=== PATIENT | male | born 1990 | race Caucasian/White ===

== ENCOUNTER → 2016-07-31 | Outpatient (CLI) | payer OTHER ==
[~2016-07-31] MED LIST: CLIN300C PO; INSUH10VL SC; TYLE325T5 PO; XANA0.25 PO; ZOLO20CO PO
--- NOTE | 2016-08-01 06:57 | REP ---
Mandible series: Four views. History: Mandible injury. Pain. Findings: Mandibular views demonstrate a fracture through the angle of the mandible on the left side with some associated swelling. This is nondisplaced. No condylar neck fracture is appreciated on either side. No other fracture is appreciated radiographically. Impression: Nondisplaced fracture of the mandibular angle on the left with associated soft-tissue swelling. No other fracture is visible. Signed by Ponce Garcia MD 08/01/2016 11:39 A
--- NOTE | 2016-08-01 07:06 | REP ---
Cervical spine series: Three views. Limited study. History: Injury in a fall 3 weeks ago, neck pain. Findings: AP, lateral and open mouth odontoid views are presented. Cervical vertebral body heights are preserved and alignment is normal. No fracture or subluxation is seen. Prevertebral soft tissues are not swollen. No malalignment is seen. Impression: Normal limited C-spine views. It should be noted that CT scanning is the imaging modality of choice for evaluation of cervical spine trauma in the adult. It is more sensitive than plain radiography. Signed by Ponce Garcia MD 08/01/2016 11:40 A
== END ==
LOC: M WUC 14:52
PROVIDERS: ATTEND Physician Assistant
DX: S02.652A Fracture of angle of left mandible, initial encounter for closed fracture (principal); Y92.9 Unspecified place or not applicable; Y93.9 Activity, unspecified; Y99.9 Unspecified external cause status; X58.XXXA Exposure to other specified factors, initial encounter

== ENCOUNTER → 2017-06-29 | Outpatient (CLI) | payer MEDICAID | LOC: M OUTALCOH 07:57 | DX: F15.20 Other stimulant dependence, uncomplicated (principal); F12.20 Cannabis dependence, uncomplicated ==

== ENCOUNTER 2017-07-10 09:29 | Outpatient (RCR) | payer MEDICAID | END 2017-07-12 | LOC: M OUTALCOH 09:29 | DX: F15.20 Other stimulant dependence, uncomplicated (principal); F12.20 Cannabis dependence, uncomplicated; Z72.0 Tobacco use ==

== ENCOUNTER 2017-07-19 15:37 | Outpatient (RCR) | payer MEDICAID | END 2017-08-12 | LOC: M OUTALCOH 07-20 10:00 | DX: F15.20 Other stimulant dependence, uncomplicated (principal); F12.20 Cannabis dependence, uncomplicated; Z72.0 Tobacco use | CPT/HCPCS: 90834 ==

== ENCOUNTER 2017-08-14 11:19 | Outpatient (RCR) | payer MEDICAID, OTHER | END 2017-09-11 | LOC: M OUTALCOH 11:19 | DX: F15.20 Other stimulant dependence, uncomplicated (principal); F12.20 Cannabis dependence, uncomplicated; Z72.0 Tobacco use | CPT/HCPCS: 90834 ==

== ENCOUNTER 2017-09-13 10:20 | Outpatient (RCR) | payer MEDICAID | END 2017-10-12 | LOC: M OUTALCOH 10:20 | DX: F15.20 Other stimulant dependence, uncomplicated (principal); F12.20 Cannabis dependence, uncomplicated; Z72.0 Tobacco use ==

== ENCOUNTER 2017-11-01 15:06 | Outpatient (RCR) | payer MEDICAID, OTHER | END 2017-11-11 | LOC: M OUTALCOH 11-07 09:00 | DX: F15.20 Other stimulant dependence, uncomplicated (principal); F12.20 Cannabis dependence, uncomplicated; Z72.0 Tobacco use | CPT/HCPCS: 90834 ==

== ENCOUNTER 2017-11-13 10:44 | Outpatient (RCR) | payer MEDICAID, OTHER | END 2017-12-12 | LOC: M OUTALCOH 10:44 | DX: F15.20 Other stimulant dependence, uncomplicated (principal); F12.20 Cannabis dependence, uncomplicated; F14.20 Cocaine dependence, uncomplicated; Z72.0 Tobacco use ==

== ENCOUNTER → 2018-02-27 | Outpatient (CLI) | payer OTHER ==
[2018-02-27 17:38] LABS: MAGNESIUM LEVEL 1.6 MG/DL (1.8-2.4)
[2018-02-27 17:51] LABS: TOTAL 25(OH) VITAMIN D 45.8 NG/ML (30.0-100.0)
== END ==
LOC: M LAB 16:49
DX: E61.2 Magnesium deficiency (principal); E55.9 Vitamin D deficiency, unspecified
CPT/HCPCS: 83735

== ENCOUNTER → 2018-03-23 | Outpatient (REF) | payer OTHER ==
[2018-03-23 17:20] LABS: MAGNESIUM LEVEL 1.8 MG/DL (1.8-2.4)
== END ==
LOC: M LAB REF 16:36
DX: E61.2 Magnesium deficiency (principal)

== ENCOUNTER → 2018-04-23 | Outpatient (CLI) | payer OTHER | LOC: M RAD 13:59 | DX: R94.6 Abnormal results of thyroid function studies (principal) ==

== ENCOUNTER 2018-05-16 19:47 | Inpatient (IN) | payer OTHER ==
[~2018-05-16] VITALS: Ht 170.2 cm; Wt 64.8 kg
[2018-05-16] MEDS ORDERED: NS 1,000 ML IV ONE (20:00)
[2018-05-16 20:02] LABS: BASO % 0.3 % (0.0-1.0); EOS # 0.3 10^3/uL (0.0-0.50); EOS % 2.3 % (0.0-3.0); HEMATOCRIT 37.2 % (42.0-52.0); HEMOGLOBIN 12.1 g/dl (13.5-17.5); LYMPH # 4.2 10^3/uL (1.5-6.5); MEAN CORPUSCULAR HEMOGLOBIN 29.7 pg (27.0-33.0); MEAN CORPUSCULAR HGB CONC 32.5 g/dl (32.0-36.5); MEAN CORPUSCULAR VOLUME 91.2 fl (80.0-96.0); MONO # 0.7 10^3/uL (0.0-0.8); NEUTROPHILS # 6.5 10^3/uL (1.8-7.7); NEUTROPHILS % 55.1 % (36.0-66.0); PLATELET COUNT, AUTOMATED 255 10^3/uL (150-450); RED BLOOD COUNT 4.08 10^6/uL (4.30-6.10); WHITE BLOOD COUNT 11.7 10^3/uL (4.0-10.0)
[2018-05-16] MEDS ORDERED: INSUHUMDS SC (20:10)
[2018-05-16] MEDS ORDERED: INSUH10VL (20:10)
[2018-05-16] MEDS ORDERED: ATOM40CA2 PO (20:10)
[2018-05-16] MEDS ORDERED: VITA50005 PO (20:10)
[2018-05-16] MEDS ORDERED: FLUO40CA PO (20:10)
[2018-05-16] MEDS ORDERED: MAGN400T PO (20:10)
[2018-05-16 20:13] LABS: INR 1.23; PARTIAL THROMBOPLASTIN TIME 25.4 SECONDS (25.4-37.6); PROTHROMBIN TIME 15.6 SECONDS (12.1-14.4)
[2018-05-16] MEDS ORDERED: THROMBIN SOLN 20,000 UNITS KIT As Ordered ONE (20:19)
[2018-05-16] MEDS ORDERED: HEPARIN SOD (PORCINE) 5000 UNITS/ML VIAL As Ordered ONE ×2 (20:19→22:01)
[2018-05-16 20:25] LABS: ALBUMIN 3.2 GM/DL (3.2-5.2); ALT/SGPT 21 U/L (12-78); AMYLASE 22 U/L (25-115); BILIRUBIN,DIRECT < 0.1 MG/DL (0.0-0.2); BILIRUBIN,TOTAL 0.3 MG/DL (0.2-1.0); BLOOD UREA NITROGEN 11 MG/DL (7-18); CALCIUM LEVEL 8.7 MG/DL (8.5-10.1); CARBON DIOXIDE LEVEL 20 MEQ/L (21-32); CHLORIDE LEVEL 101 MEQ/L (98-107); CPK CREATINE PHOSPHOKINASE 158 U/L (39-308); CREATININE FOR GFR 1.17 MG/DL (0.70-1.30); ETHYL ALCOHOL (ETHANOL) 0.058 % (0.000-0.010); GLOMERULAR FILTRATION RATE > 60.0 (>60); LIPASE 57 U/L (73-393); MB/CK RELATIVE INDEX 1.77 (< OR =4); SODIUM LEVEL 138 MEQ/L (136-145); TOTAL PROTEIN 5.8 GM/DL (6.4-8.2); TROPONIN I < 0.02 NG/ML (< 0.10)
[2018-05-16 20:26] LABS: GLUCOSE, FASTING 436 MG/DL (70-100)
[2018-05-16 20:39] LABS: ABG BASE EXCESS -12.5 (-2.0-2.0); ABG HCO3 13.5 MEQ/L (22.0-26.0); ABG O2 SATURATION 99.1 % (95.0-99.0); ABG PARTIAL PRESSURE CO2 32.1 mmHg (35.0-45.0); ABG PARTIAL PRESSURE O2 163.6 mmHg (75.0-100.0); ABG STANDARD HCO3 14.9 MEQ/L (22.0-26.0); ABG TOTAL CO2 14.5 MEQ/L (22.0-29.0); ABG pH (ARTERIAL) 7.243 UNITS (7.350-7.450)
[2018-05-16] MEDS ORDERED: MED REC COMMENT (20:39)
[2018-05-16] MEDS ORDERED: ceFAZolin 2 GM/D5W 50 ML IV BAG (J0690 PER 500MG) As Ordered ONE (20:45)
[2018-05-16] MEDS ORDERED: HumuLIN R (REGULAR) INSULIN (NovoLIN R) **100U/ML** PER UNIT As Ordered ONE ×2 (21:33→23:27)
[2018-05-16 21:35] LABS: HEMATOCRIT 31.9 % (42.0-52.0); HEMOGLOBIN 10.4 g/dl (13.5-17.5); MEAN CORPUSCULAR HEMOGLOBIN 30.3 pg (27.0-33.0); MEAN CORPUSCULAR HGB CONC 32.6 g/dl (32.0-36.5); PLATELET COUNT, AUTOMATED 188 10^3/uL (150-450); RED BLOOD COUNT 3.43 10^6/uL (4.30-6.10); WHITE BLOOD COUNT 22.9 10^3/uL (4.0-10.0)
[2018-05-16 21:45] LABS: INR 1.73; PROTHROMBIN TIME 20.6 SECONDS (12.1-14.4)
[2018-05-16] MEDS ORDERED: PROPOFOL 200 MG/20 ML VIAL As Ordered ONE (22:01)
[2018-05-16] MEDS ORDERED: fentaNYL 250 MCG/5 ML INJECTION (J3010) As Ordered ONE (22:01)
[2018-05-16] MEDS ORDERED: KETAMINE HCL 200 MG/20 ML VIAL As Ordered ONE (22:01)
[2018-05-16] MEDS ORDERED: PHENYLEPHRINE INJ 10MG/ML VIAL (J2370) As Ordered ONE (22:01)
[2018-05-16] MEDS ORDERED: PHENYLephrine HCL 500 MCG/5 ML (100MCG/ML) SYRINGE (J2370) As Ordered ONE (22:01)
[2018-05-16] MEDS ORDERED: LIDOCAINE 2% INJ 100 MG/5 ML SDV (FOR ANES.) As Ordered ONE (22:01)
[2018-05-16] MEDS ORDERED: ROCURONIUM BROMIDE 50 MG/5 ML VIAL As Ordered ONE (22:01)
[2018-05-16] MEDS ORDERED: CALCIUM CHLORIDE 10% 1 GM/10 ML SYR As Ordered ONE (22:01)
[2018-05-16] MEDS ORDERED: MIDAZOLAM INJ 2 MG/2 ML VIAL (J2250) As Ordered ONE ×2 (22:01→23:37)
[2018-05-16] MEDS ORDERED: VASOPRESSIN INJ 20 UNITS/ML VIAL As Ordered ONE (22:01)
[2018-05-16 22:03] LABS: ALBUMIN 2.3 GM/DL (3.2-5.2); BLOOD UREA NITROGEN 12 MG/DL (7-18); CALCIUM LEVEL 6.8 MG/DL (8.5-10.1); CARBON DIOXIDE LEVEL 18 MEQ/L (21-32); CHLORIDE LEVEL 107 MEQ/L (98-107); CREATININE FOR GFR 1.18 MG/DL (0.70-1.30); GLOMERULAR FILTRATION RATE > 60.0 (>60); GLUCOSE, FASTING 474 MG/DL (70-100); PHOSPHORUS LEVEL 4.9 MG/DL (2.5-4.9); POTASSIUM SERUM 5.7 MEQ/L (3.5-5.1); SODIUM LEVEL 138 MEQ/L (136-145)
[2018-05-16] MEDS ORDERED: PROPOFOL 1,000 MG/100 ML VIAL As Ordered ONE (23:10)
[2018-05-16] MEDS: LR 1,000 ML IV SCH (23:15)
[2018-05-16] MEDS ORDERED: HumuLIN R (REGULAR) INSULIN (NovoLIN R) **100U/ML** PER UNIT ONE (23:27)
[2018-05-16] MEDS: PROPOFOL 1,000 MG in APPROPRIATE DILUENT 1 EA IV SCH (23:30)
[2018-05-16 23:33] LABS: ABG BASE EXCESS -8.8 (-2.0-2.0); ABG HCO3 18.3 MEQ/L (22.0-26.0); ABG O2 SATURATION 97.1 % (95.0-99.0); ABG PARTIAL PRESSURE CO2 44.6 mmHg (35.0-45.0); ABG PARTIAL PRESSURE O2 105.7 mmHg (75.0-100.0); ABG STANDARD HCO3 17.3 MEQ/L (22.0-26.0); ABG TOTAL CO2 19.6 MEQ/L (22.0-29.0)
[2018-05-16] MEDS ORDERED: MORPHINE 4 MG/ML 1ML VIAL/SYRINGE (J2270) As Ordered ONE (23:37)
[2018-05-16 23:39] LABS: HEMATOCRIT 23.9 % (42.0-52.0); MEAN CORPUSCULAR HEMOGLOBIN 28.9 pg (27.0-33.0); MEAN CORPUSCULAR HGB CONC 32.2 g/dl (32.0-36.5); MEAN CORPUSCULAR VOLUME 89.8 fl (80.0-96.0); PLATELET COUNT, AUTOMATED 104 10^3/uL (150-450); RED BLOOD COUNT 2.66 10^6/uL (4.30-6.10); WHITE BLOOD COUNT 12.6 10^3/uL (4.0-10.0)
[2018-05-16 23:40] VITALS: O2SAT 98
[2018-05-16 23:43] LABS: HEMOGLOBIN 7.7 g/dl (13.5-17.5)
[2018-05-16] MEDS ORDERED: ONDANSETRON 4MG/2ML VIAL (J2405) IV PRN (23:45)
[2018-05-16] MEDS ORDERED: MEPERIDINE INJ 25 MG/ML VIAL (J2175) IV PRN (23:45)
[2018-05-16] MEDS ORDERED: fentaNYL 100 MCG/2 ML INJECTION (J3010) IV PRN (23:45)
[2018-05-16] MEDS ORDERED: LR 1,000 ML IV SCH (23:45)
[2018-05-16 23:49] LABS: PROTHROMBIN TIME 26.7 SECONDS (12.1-14.4)
--- NOTE | 2018-05-16 23:52 | REP ---
Clinical: Intubation . Comparison: 02/21/2013 . Findings: Endotracheal tube 4 cm above the kim. Nasogastric tube extends to the distal esophagus and requires advancement. The mediastinum and cardiac silhouette are stable and within normal limits for portable technique. The lung negron are clear without acute consolidation, effusion, or pneumothorax. Skeletal structures are intact. Impression: Nasogastric tube terminates at the mid/distal esophagus and requires advancement. No acute cardiopulmonary process appreciated. Electronically Signed by Michael Arciniega MD 05/16/2018 11:44 P
[2018-05-17] VITALS (51 sets, daily range): BP systolic 65–142; BP diastolic 35–92
[2018-05-17] MEDS ORDERED: MORPHINE 4 MG/ML 1ML VIAL/SYRINGE (J2270) IV PRN
[2018-05-17 00:09] LABS: ALBUMIN 1.5 GM/DL (3.2-5.2); ALT/SGPT 26 U/L (12-78); BILIRUBIN,DIRECT < 0.1 MG/DL (0.0-0.2); BILIRUBIN,TOTAL 0.2 MG/DL (0.2-1.0); BLOOD UREA NITROGEN 13 MG/DL (7-18); CALCIUM LEVEL 6.9 MG/DL (8.5-10.1); CARBON DIOXIDE LEVEL 21 MEQ/L (21-32); CHLORIDE LEVEL 114 MEQ/L (98-107); CPK CREATINE PHOSPHOKINASE 78 U/L (39-308); CREATININE FOR GFR 1.29 MG/DL (0.70-1.30); GLOMERULAR FILTRATION RATE > 60.0 (>60); GLUCOSE, FASTING 301 MG/DL (70-100); POTASSIUM SERUM 5.1 MEQ/L (3.5-5.1); SODIUM LEVEL 148 MEQ/L (136-145); TOTAL PROTEIN 2.5 GM/DL (6.4-8.2)
[2018-05-17 00:23] LABS: ABG BASE EXCESS -6.9 (-2.0-2.0); ABG HCO3 20.1 MEQ/L (22.0-26.0); ABG O2 SATURATION 98.4 % (95.0-99.0); ABG PARTIAL PRESSURE CO2 47.3 mmHg (35.0-45.0); ABG PARTIAL PRESSURE O2 146.5 mmHg (75.0-100.0); ABG STANDARD HCO3 18.8 MEQ/L (22.0-26.0); ABG TOTAL CO2 21.5 MEQ/L (22.0-29.0)
[2018-05-17 00:24] LABS: ABG pH (ARTERIAL) 7.246 UNITS (7.350-7.450)
[2018-05-17 00:33] LABS: PARTIAL THROMBOPLASTIN TIME > 240.0 SECONDS (25.4-37.6)
[2018-05-17] MEDS: MIDAZOLAM INJ 2 MG/2 ML VIAL (J2250) IV PRN ×6 (01:10→04:37)
[2018-05-17] MEDS: PIPERACILLIN/TAZOBACTAM SOD 3.375 GM in D5W MINI-BAG PLUS 50 ML IV SCH ×4 (01:58→18:50)
[2018-05-17 02:30] LABS: ABG BASE EXCESS -4.3 (-2.0-2.0); ABG HCO3 20.2 MEQ/L (22.0-26.0); ABG PARTIAL PRESSURE CO2 34.9 mmHg (35.0-45.0); ABG PARTIAL PRESSURE O2 176.6 mmHg (75.0-100.0); ABG TOTAL CO2 21.3 MEQ/L (22.0-29.0)
[2018-05-17] MEDS: MORPHINE 4 MG/ML 1ML VIAL/SYRINGE (J2270) IV PRN ×4 (03:06→20:55)
[2018-05-17 04:21] LABS: HEMATOCRIT 33.2 % (42.0-52.0); MEAN CORPUSCULAR HEMOGLOBIN 29.2 pg (27.0-33.0); MEAN CORPUSCULAR HGB CONC 34.3 g/dl (32.0-36.5); MEAN CORPUSCULAR VOLUME 84.9 fl (80.0-96.0); PLATELET COUNT, AUTOMATED 107 10^3/uL (150-450); RED BLOOD COUNT 3.91 10^6/uL (4.30-6.10); WHITE BLOOD COUNT 22.3 10^3/uL (4.0-10.0)
[2018-05-17 04:28] LABS: HEMOGLOBIN 11.4 g/dl (13.5-17.5)
[2018-05-17] MEDS: PROPOFOL 1,000 MG in APPROPRIATE DILUENT 1 EA IV SCH ×2 (04:34→08:40)
[2018-05-17 04:45] LABS: ALBUMIN 2.2 GM/DL (3.2-5.2); ALT/SGPT 54 U/L (12-78); BILIRUBIN,TOTAL 0.5 MG/DL (0.2-1.0); BLOOD UREA NITROGEN 19 MG/DL (7-18); CALCIUM LEVEL 7.2 MG/DL (8.5-10.1); CARBON DIOXIDE LEVEL 21 MEQ/L (21-32); CHLORIDE LEVEL 114 MEQ/L (98-107); CREATININE FOR GFR 1.22 MG/DL (0.70-1.30); GLOMERULAR FILTRATION RATE > 60.0 (>60); GLUCOSE, FASTING 252 MG/DL (70-100); SODIUM LEVEL 144 MEQ/L (136-145); TOTAL PROTEIN 3.7 GM/DL (6.4-8.2)
[2018-05-17] MEDS ORDERED: METOPROLOL 5 MG/5 ML VIAL IV STA (05:07)
[2018-05-17] MEDS ORDERED: METOPROLOL 5 MG/5 ML VIAL As Ordered ONE (05:14)
[2018-05-17] MEDS ORDERED: INSULIN IV RATE CHANGE DOCUMENTATION ML/HR XX SCH (05:15)
[2018-05-17] MEDS ORDERED: INSULIN HUMAN REGULAR 100 UNITS in NS 99 ML IV SCH (06:00)
[2018-05-17] MEDS ORDERED: CALCIUM CHLORIDE 10% 1 GM in D5W 100 ML IV ONE (06:00)
[2018-05-17] MEDS ORDERED: SOD POLYSTYRENE SULFONATE SUSP 15 GM/60 ML UD GT ONE (06:00)
[2018-05-17] MEDS: HEPARIN SOD (PORCINE) 5000 UNITS/ML VIAL SC SCH ×3 (07:00→20:44)
[2018-05-17] MEDS: LR 1,000 ML IV SCH ×2 (07:58→20:45)
[2018-05-17 08:14] LABS: ABG BASE EXCESS -4.6 (-2.0-2.0); ABG HCO3 19.5 MEQ/L (22.0-26.0); ABG O2 SATURATION 98.7 % (95.0-99.0); ABG PARTIAL PRESSURE O2 142.3 mmHg (75.0-100.0); ABG STANDARD HCO3 20.7 MEQ/L (22.0-26.0); ABG TOTAL CO2 20.5 MEQ/L (22.0-29.0)
[2018-05-17] MEDS ORDERED: PROPOFOL 1,000 MG/100 ML VIAL As Ordered ONE (08:28)
--- NOTE | 2018-05-17 08:31 | REP ---
Portable chest x-ray: Three June 03, 2018 07:01 a.m. film. History: Intubated patient. Comparison study May 16, 2018 and 11:29 p.m.. Findings: Endotracheal tube remains in good position at the level of the proximal clavicles. An NG tube is seen entering the left upper quadrant. Gaseous distension is noted in the stomach. Oxygen delivery tubing and EKG monitoring electrodes are seen. The lungs are well inflated and clear. The pleural angles are sharp. Heart size is normal. Pulmonary vasculature is not increased. No bony abnormality is seen. Impression: Tubes and lines as above. Some gaseous distension is seen in the stomach despite the NG tube which appears in good position. Otherwise no active disease. Electronically Signed by Ponce Garcia MD 05/17/2018 08:22 A
[2018-05-17] MEDS ORDERED: PANTOPRAZOLE 40MG INJ (PROTONIX) (C9113) IV SCH (09:00)
[2018-05-17] MEDS ORDERED: GLUCAGON FOR INJ 1 MG VIAL (J1610) SC PRN (09:45)
[2018-05-17] MEDS ORDERED: DEXTROSE 50% 50 ML SYRINGE IV PRN (09:45)
[2018-05-17] MEDS ORDERED: GLUCOSE 4 GM CHEW TABLET PO PRN (09:45)
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
[2018-05-17 10:07] LABS: ABG O2 SATURATION 98.5 % (95.0-99.0)
[2018-05-17 10:10] LABS: ABG BASE EXCESS -3.1 (-2.0-2.0); ABG HCO3 21.5 MEQ/L (22.0-26.0); ABG PARTIAL PRESSURE CO2 36.9 mmHg (35.0-45.0); ABG PARTIAL PRESSURE O2 130.8 mmHg (75.0-100.0); ABG STANDARD HCO3 21.9 MEQ/L (22.0-26.0); ABG TOTAL CO2 22.6 MEQ/L (22.0-29.0); ABG pH (ARTERIAL) 7.383 UNITS (7.350-7.450)
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
[2018-05-17] MEDS: HumaLOG INSULIN (NovoLOG) PER UNIT SC SCH ×3 (12:30→21:35)
[2018-05-17] MEDS ORDERED: TETANUS/DIPHTHERIA TOX ADSORB ADULT 0.5ML SYR/VIAL (90714) IM ONE (13:00)
[2018-05-17] MEDS: THIAMINE 100 MG TAB PO SCH (13:34)
[2018-05-17] MEDS: FOLIC ACID 1 MG TAB PO SCH (13:34)
[2018-05-17] MEDS: MULTIVITAMINS/MINERALS THERAP 1 TAB PO SCH (13:35)
[2018-05-17 13:43] LABS: HEMOGLOBIN 9.6 g/dl (13.5-17.5)
[2018-05-17 14:13] LABS: CALCIUM LEVEL 7.6 MG/DL (8.5-10.1); CREATININE FOR GFR 1.57 MG/DL (0.70-1.30); GLOMERULAR FILTRATION RATE 56.7 (>60); HEMOGLOBIN A1c 6.8 %; POTASSIUM SERUM 4.6 MEQ/L (3.5-5.1)
[2018-05-17] MEDS ORDERED: LEVEMIR (INSULIN DETEMIR) 1 UNITS/0.01ML SC SCH ×3 (18:30→21:00)
[2018-05-17 20:01] LABS: HEMATOCRIT 23.3 % (42.0-52.0); HEMOGLOBIN 8.2 g/dl (13.5-17.5)
[2018-05-17] MEDS ORDERED: HEPARIN SOD (PORCINE) 5000 UNITS/ML VIAL As Ordered ONE (20:40)
[2018-05-17] MEDS: FLUoxetine 20 MG CAP PO SCH (20:44)
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
[2018-05-18] MEDS: PIPERACILLIN/TAZOBACTAM SOD 3.375 GM in D5W MINI-BAG PLUS 50 ML IV SCH ×4 (01:02→18:43)
[2018-05-18] MEDS: LR 1,000 ML IV SCH ×2 (01:42→07:48)
[2018-05-18] MEDS: MORPHINE 4 MG/ML 1ML VIAL/SYRINGE (J2270) IV PRN ×4 (04:25→20:12)
[2018-05-18 06:00] VITALS: BP 136/64
[2018-05-18] MEDS: HEPARIN SOD (PORCINE) 5000 UNITS/ML VIAL SC SCH ×3 (06:05→20:12)
[2018-05-18 06:16] LABS: HEMATOCRIT 20.8 % (42.0-52.0); HEMOGLOBIN 7.5 g/dl (13.5-17.5); MEAN CORPUSCULAR HEMOGLOBIN 29.3 pg (27.0-33.0); MEAN CORPUSCULAR HGB CONC 36.1 g/dl (32.0-36.5); MEAN CORPUSCULAR VOLUME 81.3 fl (80.0-96.0); RED BLOOD COUNT 2.56 10^6/uL (4.30-6.10); WHITE BLOOD COUNT 8.9 10^3/uL (4.0-10.0)
[2018-05-18 06:30] LABS: INR 1.18; PROTHROMBIN TIME 15.2 SECONDS (12.1-14.4)
[2018-05-18 06:38] LABS: ALBUMIN 2.1 GM/DL (3.2-5.2); ALT/SGPT 56 U/L (12-78); BILIRUBIN,TOTAL 0.3 MG/DL (0.2-1.0); BLOOD UREA NITROGEN 17 MG/DL (7-18); CALCIUM LEVEL 7.4 MG/DL (8.5-10.1); CARBON DIOXIDE LEVEL 28 MEQ/L (21-32); CHLORIDE LEVEL 107 MEQ/L (98-107); GLOMERULAR FILTRATION RATE > 60.0 (>60); GLUCOSE, FASTING 230 MG/DL (70-100); MAGNESIUM LEVEL 1.6 MG/DL (1.8-2.4); POTASSIUM SERUM 3.9 MEQ/L (3.5-5.1); SODIUM LEVEL 141 MEQ/L (136-145); TOTAL PROTEIN 3.9 GM/DL (6.4-8.2)
[2018-05-18 06:42] LABS: PLATELET COUNT, AUTOMATED 81 10^3/uL (150-450)
[2018-05-18] MEDS: HumaLOG INSULIN (NovoLOG) PER UNIT SC SCH ×4 (07:49→20:19)
[2018-05-18] MEDS ORDERED: MAG SULF 1GM/100ML (MAG RUN) 1 GM in APPROPRIATE DILUENT 1 EA IV ONE (08:00)
[2018-05-18] MEDS: BENZONATATE 100 MG CAP PO SCH ×3 (09:30→20:14)
[2018-05-18] MEDS: MULTIVITAMINS/MINERALS THERAP 1 TAB PO SCH (09:31)
[2018-05-18] MEDS: SENOKOT S TAB PO SCH ×2 (09:31→20:14)
[2018-05-18] MEDS: THIAMINE 100 MG TAB PO SCH (09:31)
[2018-05-18] MEDS: FOLIC ACID 1 MG TAB PO SCH (09:31)
[2018-05-18] MEDS: PANTOPRAZOLE 20 MG TAB PO SCH (09:31)
--- NOTE | 2018-05-18 10:32 | IPNPDOC ---
Subjective Date Seen The patient was seen on 05/18/18. Subjective Chief Complaint/HPI Feeling better. No other complaint. Objective Physical Examination General Exam: Positive: Alert, Cooperative, No Acute Distress Eye Exam: Positive: PERRLA, Conjunctiva & lids normal, EOMI ENT Exam: Positive: Atraumatic Neck Exam: Positive: Supple, +2 carotid pulse wo bruit; Negative: JVD, Other Chest Exam: Positive: Clear to auscultation, Normal air movement; Negative: Rales, Rhonchi, Wheezing, Diminished, Other Heart Exam: Positive: Rate Normal, Tachycardic, Regular Rhythm, Normal S1, Normal S2; Negative: Irregular Rhythm, Gallops, Murmurs, Rubs, Other Abdomen Exam: Positive: Normal bowel sounds, Soft; Negative: Tenderness, Hepatospenomegaly, Mass Extremity Exam: Positive: Edema (Rt thigh incision c/d/i, dressing soaked, RISA 500 cc /24 hrs serosanguinous), Normal pulses (Rt DP and PT triphasic), Tenderness (Rt thigh improved); Negative: Clubbing, Cyanosis, Swelling, Other Neuro Exam: Positive: Strength at 5/5 X4 ext, Cranial Nerves 3-12 NL Psych Exam: Positive: Mental status NL, Anxiety, Oriented x 3 Assessment /Plan Assessment 1. POD #1, s/p Rt FA and FV vein angioplasty for self inflicted injury of FA and FV Pt doing better, stable distal pulses intact. RISA drain 500cc /24 hrs 2. Acute blood loss anemia, 7.5/20.8 vs 8.2/23.3 3. Lactic acidosis, continually improving, lactate 2.9 4. CAITIE resolving, Cr 1.2 vs 1.57 5. IDDM type 1 6. Anxiety and Depression Still awaiting psych consult to see pt Plan/VTE VTE Prophylaxis Ordered?: Yes Plan Continue current management PRBC x 1 unit as per Medicine DC Vick Dressing change prn OOB and up to chair Encourage ambulation as able PT, OT, IS VS, I&O, 24H, Fishbone Vital Signs/I&O Vital Signs Date Time Temp Pulse Resp B/P (MAP) Pulse Ox O2 Delivery O2 Flow Rate FiO2 05/18/18 08:03 18 05/18/18 06:00 99.6 98 136/64 (88) 97 Room Air 05/17/18 09:07 10.0 40 I&O- Last 24 Hours up to 6 AM 05/18/18 06:00 Intake Total 6307 ml Output Total 5095 ml Balance 1212 ml Laboratory Data 24H LABS Laboratory Tests 2 05/17/18 12:24: Bedside Glucose (Misc Panel) 277H 05/17/18 13:27: Anion Gap 11, Glomerular Filtration Rate 56.7L, Estimated Mean Plasma Glucose 148H, Hemoglobin A1c 6.8, Lactic Acid Level 2.9*H, Blood Urea Nitrogen 24H, Creatinine 1.57H, Sodium Level 138, Potassium Level 4.6, Chloride Level 105, Carbon Dioxide Level 22, Calcium Level 7.6L 05/17/18 16:43: Bedside Glucose (Misc Panel) 334H 05/17/18 20:20: Bedside Glucose (Misc Panel) 362H 05/17/18 23:48: Bedside Glucose (Misc Panel) 269H 05/18/18 05:19: Nucleated Red Blood Cells % (auto) 0.0, Immature Platelet Fraction 6.0, Prothrombin Time 15.2H, Prothromb Time International Ratio 1.18, Anion Gap 6L, Glomerular Filtration Rate > 60.0, Blood Urea Nitrogen 17, Creatinine 1.20, Sodium Level 141, Potassium Level 3.9, Chloride Level 107, Carbon Dioxide Level 28, Calcium Level 7.4L, Aspartate Amino Transf (AST/SGOT) 81H, Alanine Aminotransferase (ALT/SGPT) 56, Alkaline Phosphatase 59, Total Bilirubin 0.3, T otal Protein 3.9L, Albumin 2.1L, Magnesium Level 1.6L, Albumin/Globulin Ratio 1.17 CBC/BMP Laboratory Tests 05/17/18 13:27 Calcium Level 7.6 L 05/17/18 19:48 05/18/18 05:19 Calcium Level 7.4 L, Red Blood Count 2.56 L, Mean Corpuscular Volume 81.3, Mean Corpuscular Hemoglobin 29.3, Mean Corpuscular Hemoglobin Concent 36.1, Red Cell Distribution Width 13.8, Aspartate Amino Transf (AST/SGOT) 81 H, Alanine Aminotransferase (ALT/SGPT) 56, Alkaline Phosphatase 59, Total Bilirubin 0.3, Total Protein 3.9 L, Albumin 2.1 L Microbiology Microbiology 05/17/18 Blood Culture, Received Pending 05/17/18 Blood Culture, Received Pending 05/17/18 MRSA Screen, Received Pending FRANSISCO CASTILLO PA-C May 18, 2018 10:32
[2018-05-18 12:00] VITALS: BP 149/87
[2018-05-18 13:00] VITALS: BP 131/73
[2018-05-18 14:00] VITALS: BP 148/81
[2018-05-18 14:11] LABS: HEMATOCRIT 24.5 % (42.0-52.0); HEMOGLOBIN 8.7 g/dl (13.5-17.5); MEAN CORPUSCULAR HEMOGLOBIN 29.9 pg (27.0-33.0); MEAN CORPUSCULAR HGB CONC 35.5 g/dl (32.0-36.5); MEAN CORPUSCULAR VOLUME 84.2 fl (80.0-96.0); RED BLOOD COUNT 2.91 10^6/uL (4.30-6.10); WHITE BLOOD COUNT 9.5 10^3/uL (4.0-10.0)
[2018-05-18 14:13] LABS: PLATELET COUNT, AUTOMATED 85 10^3/uL (150-450)
[2018-05-18] MEDS: ONDANSETRON 4MG/2ML VIAL (J2405) IV PRN (17:46)
[2018-05-18 18:00] VITALS: BP 146/90
[2018-05-18] MEDS ORDERED: HumaLOG INSULIN (NovoLOG) PER UNIT SC ONE (18:30)
--- NOTE | 2018-05-18 19:54 | IPNPDOC ---
Text Note Date of Service The patient was seen on 05/18/18. NOTE No acute events overnight. comfortable. reported mild cough. denied chest pain, light headedness. GENERAL: Patient alert, comfortable. In no acute distress. HEENT: Normocephalic, atraumatic. PULMONARY: Bilateral clear. CARDIAC: Regular. s1s2 ABDOMEN: Soft, nontender. EXTREMITIES: Right groin dressing clean, dry, intact. RISA drain in place. sanguineous drainage. Dorsalis pedis/posterior tibial (DP/PT) pulses intact bilateral. ASSESSMENT AND PLAN: This is a 28-year-old male patient with underlying medical history of insulin dependent type 1 diabetes, MRSA in the past, hepatitis C, anxiety, depression, IV drug abuse admitted with attempted to stab himself in the right groin with severed femoral artery and femoral vein. PROBLEMS: 1. Stabbing himself in the left groin several femoral artery and femoral vein. Management as per vascular. Tetanus shot given. Transfuse. Followup hemoglobin and hematocrit. Empirically started on Zosyn. psychiatry evaluation. Likely would benefit from inpatient psychiatry. Suicide precaution. Elopement precaution. Aggression precaution. Pain management as per vascular surgery. Activity status as per vascular surgery. facundo alonzo 2. Hyperkalemia. Likely secondary to limb ischemia, which has improved. Continue IV fluids. 3. Lactic acidosis. Secondary to limb ischemia, improved. 4. Acute kidney injury, likely prerenal. Will monitor clinically. IV fluids. Monitor hemoglobin and hematocrit. improved 5. Leukocytosis. Likely reactive. Patient on Zosyn. Followup cultures. 6. Insulin dependent diabetes. Basal bolus insulin. Followup fingersticks. Adjust as needed. Diet: Consistent carbohydrate. 7. Depression and anxiety. Need psychiatry consultation. Continue current medications. Further medication adjustment as per psychiatry. 8. History of MRSA. Will monitor clinically. 9 constipation bowel reg given 10. Polysubstance abuse. Alcohol abuse. Monitor for withdrawal. Thiamine, folate, multivitamin. Counseling provided. 11. Smoking. Refused nicotine patch. Counseling provided. 12. Deep venous thrombosis (DVT) prophylaxis. Heparin subcutaneous as per primary team. dispo as per vascular VS,Jenny, I+O VS, Jenny, I+O Laboratory Tests 05/18/18 05:19 Red Blood Count 2.56 L, Mean Corpuscular Volume 81.3, Mean Corpuscular Hemoglobin 29.3, Mean Corpuscular Hemoglobin Concent 36.1, Red Cell Distribution Width 13.8, Calcium Level 7.4 L, Aspartate Amino Transf (AST/SGOT) 81 H, Alanine Aminotransferase (ALT/SGPT) 56, Alkaline Phosphatase 59, Total Bilirubin 0.3, Total Protein 3.9 L, Albumin 2.1 L 05/18/18 13:51 Red Blood Count 2.91 L, Mean Corpuscular Volume 84.2, Mean Corpuscular Hemoglobin 29.9, Mean Corpuscular Hemoglobin Concent 35.5, Red Cell Distribution Width 13.9 Vital Signs Date Time Temp Pulse Resp B/P (MAP) Pulse Ox O2 Delivery O2 Flow Rate FiO2 05/18/18 18:00 99.2 87 18 146/90 (108) 100 Room Air 05/17/18 09:07 10.0 40 I&O- Last 24 Hours up to 6 AM 05/18/18 06:00 Intake Total 6307 ml Output Total 5095 ml Balance 1212 ml WOLF FENTON MD May 18, 2018 19:54
[2018-05-18] MEDS ORDERED: HEPARIN SOD (PORCINE) 5000 UNITS/ML VIAL As Ordered ONE (20:01)
[2018-05-18] MEDS: LEVEMIR (INSULIN DETEMIR) 1 UNITS/0.01ML SC SCH (20:13)
[2018-05-18] MEDS: FLUoxetine 20 MG CAP PO SCH (20:14)
[2018-05-18] MEDS ORDERED: LEVEMIR (INSULIN DETEMIR) 1 UNITS/0.01ML SC SCH ×2 (21:00)
[2018-05-18 22:00] VITALS: BP 138/74
[2018-05-19] MEDS: PIPERACILLIN/TAZOBACTAM SOD 3.375 GM in D5W MINI-BAG PLUS 50 ML IV SCH ×2 (00:10→06:13)
[2018-05-19 02:00] VITALS: BP 140/78
[2018-05-19 06:00] VITALS: BP 138/83
[2018-05-19] MEDS: HEPARIN SOD (PORCINE) 5000 UNITS/ML VIAL SC SCH ×3 (06:13→21:18)
[2018-05-19 06:38] LABS: HEMOGLOBIN 8.2 g/dl (13.5-17.5); MEAN CORPUSCULAR HEMOGLOBIN 29.3 pg (27.0-33.0); MEAN CORPUSCULAR HGB CONC 34.2 g/dl (32.0-36.5); MEAN CORPUSCULAR VOLUME 85.7 fl (80.0-96.0); PLATELET COUNT, AUTOMATED 108 10^3/uL (150-450); WHITE BLOOD COUNT 7.7 10^3/uL (4.0-10.0)
[2018-05-19 06:49] LABS: INR 1.06; PROTHROMBIN TIME 13.9 SECONDS (12.1-14.4)
[2018-05-19 07:17] LABS: ALBUMIN 2.3 GM/DL (3.2-5.2); ALT/SGPT 70 U/L (12-78); BILIRUBIN,TOTAL 0.4 MG/DL (0.2-1.0); BLOOD UREA NITROGEN 11 MG/DL (7-18); CARBON DIOXIDE LEVEL 31 MEQ/L (21-32); CHLORIDE LEVEL 105 MEQ/L (98-107); CREATININE FOR GFR 1.01 MG/DL (0.70-1.30); GLOMERULAR FILTRATION RATE > 60.0 (>60); GLUCOSE, FASTING 187 MG/DL (70-100); MAGNESIUM LEVEL 1.5 MG/DL (1.8-2.4); POTASSIUM SERUM 3.7 MEQ/L (3.5-5.1); SODIUM LEVEL 142 MEQ/L (136-145); TOTAL PROTEIN 4.8 GM/DL (6.4-8.2)
[2018-05-19] MEDS ORDERED: POTASSIUM CHLORIDE 10 MEQ SR TABLET PO ONE (08:00)
[2018-05-19] MEDS: MAG SULF 1GM/100ML (MAG RUN) 1 GM in APPROPRIATE DILUENT 1 EA IV SCH ×2 (08:10→09:38)
[2018-05-19] MEDS: PANTOPRAZOLE 20 MG TAB PO SCH (08:10)
[2018-05-19] MEDS: BENZONATATE 100 MG CAP PO SCH ×3 (08:11→21:16)
[2018-05-19] MEDS: SENOKOT S TAB PO SCH ×2 (08:11→21:16)
[2018-05-19] MEDS: FOLIC ACID 1 MG TAB PO SCH (08:11)
[2018-05-19] MEDS: MULTIVITAMINS/MINERALS THERAP 1 TAB PO SCH (08:11)
[2018-05-19] MEDS: THIAMINE 100 MG TAB PO SCH (08:11)
[2018-05-19] MEDS: HumaLOG INSULIN (NovoLOG) PER UNIT SC SCH ×4 (08:12→21:17)
[2018-05-19] MEDS: MORPHINE 4 MG/ML 1ML VIAL/SYRINGE (J2270) IV PRN (08:12)
[2018-05-19 10:00] VITALS: BP 155/91
[2018-05-19] MEDS: NORCO, ANEXSIA 5/325MG TABLET (HYDROcodone/ACETAMINOPHEN) PO PRN ×2 (13:18→18:44)
[2018-05-19] MEDS: amLODIPine 5 MG TAB PO SCH (13:23)
[2018-05-19 14:00] VITALS: BP 138/83
--- NOTE | 2018-05-19 16:40 | IPNPDOC ---
Text Note Date of Service The patient was seen on 05/19/18. NOTE No acute events overnight. comfortable. reported mild cough. denied chest pain, light headedness. GENERAL: Patient alert, comfortable. In no acute distress. HEENT: Normocephalic, atraumatic. PULMONARY: Bilateral clear. CARDIAC: Regular. s1s2 ABDOMEN: Soft, nontender. EXTREMITIES: Right groin dressing clean, dry, intact. RISA drain in place. sanguineous drainage. Dorsalis pedis/posterior tibial (DP/PT) pulses intact bilateral. ASSESSMENT AND PLAN: This is a 28-year-old male patient with underlying medical history of insulin dependent type 1 diabetes, MRSA in the past, hepatitis C, anxiety, depression, IV drug abuse admitted with attempted to stab himself in the right groin with severed femoral artery and femoral vein. PROBLEMS: 1. Stabbing himself in the left groin several femoral artery and femoral vein. Management as per vascular. Tetanus shot given. Transfuse. Followup hemoglobin and hematocrit. off antibiotics. psychiatry evaluation. Suicide precaution. Elopement precaution. Aggression precaution. Pain management as per vascular surgery. Activity status as per vascular surgery.pt 2. Hyperkalemia. Likely secondary to limb ischemia, resolved 3. Lactic acidosis. Secondary to limb ischemia, improved. 4. Acute kidney injury, likely prerenal. Will monitor clinically. IVf completed Monitor hemoglobin and hematocrit. improved 5. Leukocytosis. Likely reactive.off zosyn. Followup cultures. resolved 6. Insulin dependent diabetes. Basal bolus insulin. Followup fingersticks. Adjust as needed. Diet: Consistent carbohydrate. 7. Depression and anxiety. Need psychiatry consultation. Continue current medications. Further medication adjustment as per psychiatry. 8. History of MRSA. Will monitor clinically. 9 constipation bowel reg given 10. Polysubstance abuse. Alcohol abuse. Monitor for withdrawal. Thiamine, folate, multivitamin. Counseling provided. 11. Smoking. Refused nicotine patch. Counseling provided. 12. Deep venous thrombosis (DVT) prophylaxis. Heparin subcutaneous as per primary team. dispo as per vascular VS,Jenny, I+O VS, Jenny, I+O Laboratory Tests 05/19/18 05:57 Red Blood Count 2.80 L, Mean Corpuscular Volume 85.7, Mean Corpuscular Hemoglobin 29.3, Mean Corpuscular Hemoglobin Concent 34.2, Red Cell Distribution Width 13.6, Calcium Level 8.0 L, Aspartate Amino Transf (AST/SGOT) 46 H, Alanine Aminotransferase (ALT/SGPT) 70, Alkaline Phosphatase 62, Total Bilirubin 0.4, Total Protein 4.8 #L, Albumin 2.3 L Vital Signs Date Time Temp Pulse Resp B/P (MAP) Pulse Ox O2 Delivery O2 Flow Rate FiO2 05/19/18 14:00 98.4 106 18 138/83 (101) 95 Room Air 05/17/18 09:07 10.0 40 I&O- Last 24 Hours up to 6 AM 05/19/18 05:59 Intake Total 5009 ml Output Total 7145 ml Balance -2136 ml WOLF FENTON MD May 19, 2018 16:40
[2018-05-19 18:00] VITALS: BP 139/86
[2018-05-19] MEDS ORDERED: HEPARIN SOD (PORCINE) 5000 UNITS/ML VIAL As Ordered ONE (21:12)
[2018-05-19] MEDS: FLUoxetine 20 MG CAP PO SCH (21:16)
[2018-05-19] MEDS: LEVEMIR (INSULIN DETEMIR) 1 UNITS/0.01ML SC SCH (21:17)
[2018-05-19 22:00] VITALS: BP 153/80
[2018-05-20] MEDS: NORCO, ANEXSIA 5/325MG TABLET (HYDROcodone/ACETAMINOPHEN) PO PRN ×4 (02:06→21:19)
[2018-05-20] MEDS: HEPARIN SOD (PORCINE) 5000 UNITS/ML VIAL SC SCH ×3 (05:17→21:18)
[2018-05-20 06:00] VITALS: BP 118/79
[2018-05-20 06:44] LABS: HEMATOCRIT 24.4 % (42.0-52.0); HEMOGLOBIN 8.5 g/dl (13.5-17.5); MEAN CORPUSCULAR HEMOGLOBIN 29.5 pg (27.0-33.0); MEAN CORPUSCULAR HGB CONC 34.8 g/dl (32.0-36.5); MEAN CORPUSCULAR VOLUME 84.7 fl (80.0-96.0); PLATELET COUNT, AUTOMATED 141 10^3/uL (150-450); RED BLOOD COUNT 2.88 10^6/uL (4.30-6.10); WHITE BLOOD COUNT 8.1 10^3/uL (4.0-10.0)
[2018-05-20 06:57] LABS: INR 1.02; PROTHROMBIN TIME 13.5 SECONDS (12.1-14.4)
[2018-05-20 07:18] LABS: ALBUMIN 2.5 GM/DL (3.2-5.2); ALT/SGPT 56 U/L (12-78); BILIRUBIN,TOTAL 0.4 MG/DL (0.2-1.0); BLOOD UREA NITROGEN 11 MG/DL (7-18); CALCIUM LEVEL 8.4 MG/DL (8.5-10.1); CARBON DIOXIDE LEVEL 31 MEQ/L (21-32); CHLORIDE LEVEL 105 MEQ/L (98-107); CREATININE FOR GFR 0.85 MG/DL (0.70-1.30); GLOMERULAR FILTRATION RATE > 60.0 (>60); GLUCOSE, FASTING 179 MG/DL (70-100); MAGNESIUM LEVEL 1.6 MG/DL (1.8-2.4); POTASSIUM SERUM 3.7 MEQ/L (3.5-5.1); SODIUM LEVEL 142 MEQ/L (136-145); TOTAL PROTEIN 5.2 GM/DL (6.4-8.2)
[2018-05-20] MEDS: HumaLOG INSULIN (NovoLOG) PER UNIT SC SCH ×4 (09:00→21:18)
[2018-05-20] MEDS ORDERED: LEVEMIR (INSULIN DETEMIR) 1 UNITS/0.01ML SC SCH (09:00)
[2018-05-20] MEDS: amLODIPine 5 MG TAB PO SCH (09:02)
[2018-05-20] MEDS: FOLIC ACID 1 MG TAB PO SCH (09:03)
[2018-05-20] MEDS: MULTIVITAMINS/MINERALS THERAP 1 TAB PO SCH (09:03)
[2018-05-20] MEDS: BENZONATATE 100 MG CAP PO SCH ×3 (09:03→21:19)
[2018-05-20] MEDS: SENOKOT S TAB PO SCH ×2 (09:03→21:18)
[2018-05-20] MEDS: PANTOPRAZOLE 20 MG TAB PO SCH (09:03)
[2018-05-20] MEDS: THIAMINE 100 MG TAB PO SCH (09:03)
[2018-05-20] MEDS: MAG SULF 1GM/100ML (MAG RUN) 1 GM in APPROPRIATE DILUENT 1 EA IV SCH ×2 (09:04→10:41)
[2018-05-20] MEDS: ONDANSETRON 4MG/2ML VIAL (J2405) IV PRN (09:13)
[2018-05-20 14:00] VITALS: BP 141/84
--- NOTE | 2018-05-20 19:53 | IPNPDOC ---
Text Note Date of Service The patient was seen on 05/20/18. NOTE No acute events overnight. comfortable. denied chest pain, light headedness. reported right leg numbness improved GENERAL: Patient alert, comfortable. In no acute distress. HEENT: Normocephalic, atraumatic. PULMONARY: Bilateral clear. CARDIAC: Regular. s1s2 ABDOMEN: Soft, nontender. EXTREMITIES: Right groin dressing clean, dry, intact. RISA drain in place. sanguineous drainage. Dorsalis pedis/posterior tibial (DP/PT) pulses intact bilateral. ASSESSMENT AND PLAN: This is a 28-year-old male patient with underlying medical history of insulin dependent type 1 diabetes, MRSA in the past, hepatitis C, anxiety, depression, IV drug abuse admitted with attempted to stab himself in the right groin with severed femoral artery and femoral vein. PROBLEMS: 1. Stabbing himself in the left groin several femoral artery and femoral vein. Management as per vascular. Tetanus shot given. Transfuse. Followup hemoglobin and hematocrit. off antibiotics. psychiatry evaluation. Suicide precaution. Elopement precaution. Aggression precaution. Pain management as per vascular surgery. Activity status as per vascular surgery.pt 2. Hyperkalemia. Likely secondary to limb ischemia, resolved 3. Lactic acidosis. Secondary to limb ischemia, improved. 4. Acute kidney injury, likely prerenal. Will monitor clinically. IVf completed Monitor hemoglobin and hematocrit. improved 5. Leukocytosis. Likely reactive.off zosyn. Followup cultures. resolved 6. Insulin dependent diabetes. Basal bolus insulin. Followup fingersticks. Adjust as needed. Diet: Consistent carbohydrate. 7. Depression and anxiety. Need psychiatry consultation. Continue current medications. Further medication adjustment as per psychiatry. 8. History of MRSA. Will monitor clinically. 9 constipation bowel reg given 10. Polysubstance abuse. Alcohol abuse. Monitor for withdrawal. Thiamine, folate, multivitamin. Counseling provided. 11. Smoking. Refused nicotine patch. Counseling provided. 12. Deep venous thrombosis (DVT) prophylaxis. Heparin subcutaneous as per primary team. dispo as per vascular, need final psych rec VS,Jenny, I+O VS, Jenny, I+O Laboratory Tests 05/20/18 05:22 Red Blood Count 2.88 L, Mean Corpuscular Volume 84.7, Mean Corpuscular Hemoglobin 29.5, Mean Corpuscular Hemoglobin Concent 34.8, Red Cell Distribution Width 13.2, Calcium Level 8.4 L, Aspartate Amino Transf (AST/SGOT) 26, Alanine Aminotransferase (ALT/SGPT) 56, Alkaline Phosphatase 62, Total Bilirubin 0.4, Total Protein 5.2 L, Albumin 2.5 L Vital Signs Date Time Temp Pulse Resp B/P (MAP) Pulse Ox O2 Delivery O2 Flow Rate FiO2 05/20/18 15:52 18 Room Air 05/20/18 14:00 99.1 109 141/84 (103) 97 05/17/18 09:07 10.0 40 I&O- Last 24 Hours up to 6 AM 05/20/18 06:00 Intake Total 3660 ml Output Total 5530 ml Balance -1870 ml WOLF FENTON MD May 20, 2018 19:53
[2018-05-20] MEDS: LEVEMIR (INSULIN DETEMIR) 1 UNITS/0.01ML SC SCH (21:17)
[2018-05-20] MEDS: FLUoxetine 20 MG CAP PO SCH (21:18)
[2018-05-20 22:00] VITALS: BP 148/85
[2018-05-21] MEDS: HEPARIN SOD (PORCINE) 5000 UNITS/ML VIAL SC SCH ×3 (05:35→21:09)
[2018-05-21] MEDS: NORCO, ANEXSIA 5/325MG TABLET (HYDROcodone/ACETAMINOPHEN) PO PRN ×4 (05:36→19:50)
[2018-05-21 05:47] LABS: HEMATOCRIT 26.9 % (42.0-52.0); HEMOGLOBIN 9.2 g/dl (13.5-17.5); MEAN CORPUSCULAR HEMOGLOBIN 29.1 pg (27.0-33.0); MEAN CORPUSCULAR HGB CONC 34.2 g/dl (32.0-36.5); MEAN CORPUSCULAR VOLUME 85.1 fl (80.0-96.0); PLATELET COUNT, AUTOMATED 198 10^3/uL (150-450); RED BLOOD COUNT 3.16 10^6/uL (4.30-6.10); WHITE BLOOD COUNT 9.2 10^3/uL (4.0-10.0)
[2018-05-21 06:00] VITALS: BP 147/86
[2018-05-21 06:01] LABS: INR 0.95; PROTHROMBIN TIME 12.8 SECONDS (12.1-14.4)
[2018-05-21 06:02] LABS: ALBUMIN 2.7 GM/DL (3.2-5.2); ALT/SGPT 51 U/L (12-78); BILIRUBIN,TOTAL 0.4 MG/DL (0.2-1.0); BLOOD UREA NITROGEN 14 MG/DL (7-18); CALCIUM LEVEL 8.6 MG/DL (8.5-10.1); CARBON DIOXIDE LEVEL 31 MEQ/L (21-32); CHLORIDE LEVEL 104 MEQ/L (98-107); CREATININE FOR GFR 0.86 MG/DL (0.70-1.30); GLOMERULAR FILTRATION RATE > 60.0 (>60); GLUCOSE, FASTING 155 MG/DL (70-100); MAGNESIUM LEVEL 1.6 MG/DL (1.8-2.4); POTASSIUM SERUM 3.9 MEQ/L (3.5-5.1); SODIUM LEVEL 141 MEQ/L (136-145); TOTAL PROTEIN 5.8 GM/DL (6.4-8.2)
[2018-05-21] MEDS: ONDANSETRON 4MG/2ML VIAL (J2405) IV PRN (07:51)
[2018-05-21] MEDS: MAG SULF 1GM/100ML (MAG RUN) 1 GM in APPROPRIATE DILUENT 1 EA IV SCH ×2 (08:28→08:56)
[2018-05-21] MEDS: HumaLOG INSULIN (NovoLOG) PER UNIT SC SCH ×5 (08:29→21:10)
[2018-05-21] MEDS: MULTIVITAMINS/MINERALS THERAP 1 TAB PO SCH (08:30)
[2018-05-21] MEDS: LEVEMIR (INSULIN DETEMIR) 1 UNITS/0.01ML SC SCH ×2 (08:30→21:11)
[2018-05-21] MEDS: SENOKOT S TAB PO SCH ×2 (08:30→21:09)
[2018-05-21] MEDS: FOLIC ACID 1 MG TAB PO SCH (08:30)
[2018-05-21] MEDS: THIAMINE 100 MG TAB PO SCH (08:31)
[2018-05-21] MEDS: BENZONATATE 100 MG CAP PO SCH ×3 (08:34→21:09)
[2018-05-21] MEDS: PANTOPRAZOLE 20 MG TAB PO SCH (08:34)
[2018-05-21] MEDS: amLODIPine 5 MG TAB PO SCH (08:34)
--- NOTE | 2018-05-21 11:43 | IPNPDOC ---
Subjective Date Seen The patient was seen on 05/21/18. Subjective Chief Complaint/HPI No c/o. Ambulated x2 w/o intolerance. Objective Physical Examination General Exam: Positive: Alert, Cooperative, No Acute Distress Eye Exam: Positive: PERRLA, Conjunctiva & lids normal, EOMI ENT Exam: Positive: Atraumatic Neck Exam: Positive: Supple, +2 carotid pulse wo bruit; Negative: JVD, Other Chest Exam: Positive: Clear to auscultation, Normal air movement; Negative: Rales, Rhonchi, Wheezing, Diminished, Other Heart Exam: Positive: Rate Normal, Tachycardic, Regular Rhythm, Normal S1, Normal S2; Negative: Irregular Rhythm, Gallops, Murmurs, Rubs, Other Abdomen Exam: Positive: Normal bowel sounds, Soft; Negative: Tenderness, Hepatospenomegaly, Mass Extremity Exam: Positive: Edema (Rt thigh incision c/d/i, dressing clean and d ry, RISA 120 cc/24 hrs serosanguinous), Normal pulses (Rt DP and PT triphasic), Tenderness (Rt thigh improved); Negative: Clubbing, Cyanosis, Swelling, Other Neuro Exam: Positive: Strength at 5/5 X4 ext, Cranial Nerves 3-12 NL Psych Exam: Positive: Mental status NL, Anxiety, Oriented x 3 Assessment /Plan Assessment 1. POD #4, s/p Rt FA and FV vein angioplasty for self inflicted injury of FA and FV Pt doing good, stable distal pulses intact. RISA drain trending down, 120cc /24 hrs 2. Acute blood loss anemia, improved H&H 9.2/26.9 3. Anxiety and Depression Await Psych consult to see pt 4. Type 1 IDDM Plan/VTE VTE Prophylaxis Ordered?: Yes Plan Continue current management. Keep RISA drain until drainage <100 cc /24 hrs. VS, I&O, 24H, Fishbone Vital Signs/I&O Vital Signs Date Time Temp Pulse Resp B/P (MAP) Pulse Ox O2 Delivery O2 Flow Rate FiO2 05/21/18 10:11 18 05/21/18 08:34 86 138/88 05/21/18 06:00 97.6 98 Room Air 05/17/18 09:07 10.0 40 I&O- Last 24 Hours up to 6 AM 05/21/18 06:00 Intake Total 2960 ml Output Total 4030 ml Balance -1070 ml Laboratory Data 24H LABS Laboratory Tests 2 05/20/18 11:46: Bedside Glucose (Misc Panel) 386H 05/20/18 17:15: Bedside Glucose (Misc Panel) 252H 05/20/18 19:51: Bedside Glucose (Misc Panel) 327H 05/21/18 05:21: Nucleated Red Blood Cells % (auto) 0.0, Prothrombin Time 12.8, Prothromb Time International Ratio 0.95, Anion Gap 6L, Glomerular Filtration Rate > 60.0, Blood Urea Nitrogen 14, Creatinine 0.86, Sodium Level 141, Potassium Level 3.9, Chloride Level 104, Carbon Dioxide Level 31, Calcium Level 8.6, Aspartate Amino Transf (AST/SGOT) 26, Alanine Aminotransferase (ALT/SGPT) 51, Alkaline Phosphatase 67, Total Bilirubin 0.4, Total Protein 5.8L, Albumin 2.7L, Magnesium Level 1.6L, Albumin/Globulin Ratio 0.87L 05/21/18 11:26: Bedside Glucose (Misc Panel) 331H CBC/BMP Laboratory Tests 05/21/18 05:21 Red Blood Count 3.16 L, Mean Corpuscular Volume 85.1, Mean Corpuscular Hemoglobin 29.1, Mean Corpuscular Hemoglobin Concent 34.2, Red Cell Distribution Width 13.2, Calcium Level 8.6, Aspartate Amino Transf (AST/SGOT) 26, Alanine Aminotransferase (ALT/SGPT) 51, Alkaline Phosphatase 67, Total Bilirubin 0.4, Total Protein 5.8 L, Albumin 2.7 L Microbiology Microbiology 05/21/18 Blood Culture, Received Pending 05/21/18 Blood Culture, Received Pending 05/17/18 Blood Culture - Preliminary, Resulted No Growth after 72 hours. All specime... 05/17/18 Blood Culture - Preliminary, Resulted No Growth after 72 hours. All specime... 05/17/18 MRSA Screen - Final, Complete FRANSISCO CASTILLO PA-C May 21, 2018 11:43
[2018-05-21 14:00] VITALS: BP 134/70
--- NOTE | 2018-05-21 17:28 | IPNPDOC ---
Text Note Date of Service The patient was seen on 05/21/18. NOTE No acute events overnight. comfortable. denied chest pain, light headedness. reported right leg numbness improved GENERAL: Patient alert, comfortable. In no acute distress. HEENT: Normocephalic, atraumatic. PULMONARY: Bilateral clear. CARDIAC: Regular. s1s2 ABDOMEN: Soft, nontender. EXTREMITIES: Right groin dressing clean, dry, intact. RISA drain in place. sanguineous drainage. Dorsalis pedis/posterior tibial (DP/PT) pulses intact bilateral. ASSESSMENT AND PLAN: This is a 28-year-old male patient with underlying medical history of insulin dependent type 1 diabetes, MRSA in the past, hepatitis C, anxiety, depression, IV drug abuse admitted with attempted to stab himself in the right groin with severed femoral artery and femoral vein. PROBLEMS: 1. Stabbing himself in the left groin several femoral artery and femoral vein. Management as per vascular. Tetanus shot given. Transfused. Followup hemoglobin and hematocrit. off antibiotics. psychiatry evaluation. Suicide precaution. Elopement precaution. Aggression precaution. Pain management as per vascular surgery. Activity status as per vascular surgery.pt 2. Hyperkalemia. Likely secondary to limb ischemia, resolved 3. Lactic acidosis. Secondary to limb ischemia, improved. 4. Acute kidney injury, likely prerenal. Will monitor clinically. IVf completed Monitor hemoglobin and hematocrit. improved 5. Leukocytosis. Likely reactive.off zosyn. Followup cultures. resolved 6. Insulin dependent diabetes. Basal bolus insulin. Followup fingersticks. Adjust as needed. Diet: Consistent carbohydrate. 7. Depression and anxiety. Need psychiatry consultation. Continue current medications. Further medication adjustment as per psychiatry. 8. History of MRSA. Will monitor clinically. 9 constipation bowel reg given 10. Polysubstance abuse. Alcohol abuse. Monitor for withdrawal. Thiamine, folate, multivitamin. Counseling provided. 11. Smoking. Refused nicotine patch. Counseling provided. 12. Deep venous thrombosis (DVT) prophylaxis. Heparin subcutaneous as per primary team. dispo as per vascular, need final psych rec VS,Jenny, I+O VS, Jenny, I+O Laboratory Tests 05/21/18 05:21 Red Blood Count 3.16 L, Mean Corpuscular Volume 85.1, Mean Corpuscular Hemoglobin 29.1, Mean Corpuscular Hemoglobin Concent 34.2, Red Cell Distribution Width 13.2, Calcium Level 8.6, Aspartate Amino Transf (AST/SGOT) 26, Alanine Aminotransferase (ALT/SGPT) 51, Alkaline Phosphatase 67, Total Bilirubin 0.4, Total Protein 5.8 L, Albumin 2.7 L Vital Signs Date Time Temp Pulse Resp B/P (MAP) Pulse Ox O2 Delivery O2 Flow Rate FiO2 05/21/18 15:25 18 05/21/18 14:00 98.2 90 134/70 (91) 99 Room Air 05/17/18 09:07 10.0 40 I&O- Last 24 Hours up to 6 AM 05/21/18 06:00 Intake Total 2960 ml Output Total 4030 ml Balance -1070 ml WOLF FENTON MD May 21, 2018 17:28
[2018-05-21] MEDS: FLUoxetine 20 MG CAP PO SCH (21:09)
[2018-05-21 22:00] VITALS: BP 142/90
[2018-05-22] MEDS: NORCO, ANEXSIA 5/325MG TABLET (HYDROcodone/ACETAMINOPHEN) PO PRN ×6 (02:42→23:59)
[2018-05-22 06:00] VITALS: BP 130/80
[2018-05-22] MEDS: HEPARIN SOD (PORCINE) 5000 UNITS/ML VIAL SC SCH ×3 (06:46→22:07)
[2018-05-22 06:48] LABS: HEMATOCRIT 29.6 % (42.0-52.0); HEMOGLOBIN 10.1 g/dl (13.5-17.5); MEAN CORPUSCULAR HEMOGLOBIN 29.8 pg (27.0-33.0); MEAN CORPUSCULAR HGB CONC 34.1 g/dl (32.0-36.5); MEAN CORPUSCULAR VOLUME 87.3 fl (80.0-96.0); PLATELET COUNT, AUTOMATED 246 10^3/uL (150-450); RED BLOOD COUNT 3.39 10^6/uL (4.30-6.10); WHITE BLOOD COUNT 8.6 10^3/uL (4.0-10.0)
[2018-05-22 07:01] LABS: PROTHROMBIN TIME 13.3 SECONDS (12.1-14.4)
[2018-05-22 07:18] LABS: ALT/SGPT 48 U/L (12-78); BILIRUBIN,TOTAL 0.4 MG/DL (0.2-1.0); BLOOD UREA NITROGEN 15 MG/DL (7-18); CALCIUM LEVEL 9.2 MG/DL (8.5-10.1); CARBON DIOXIDE LEVEL 30 MEQ/L (21-32); CHLORIDE LEVEL 104 MEQ/L (98-107); CREATININE FOR GFR 0.81 MG/DL (0.70-1.30); GLOMERULAR FILTRATION RATE > 60.0 (>60); GLUCOSE, FASTING 212 MG/DL (70-100); MAGNESIUM LEVEL 1.8 MG/DL (1.8-2.4); POTASSIUM SERUM 4.5 MEQ/L (3.5-5.1); SODIUM LEVEL 138 MEQ/L (136-145); TOTAL PROTEIN 6.2 GM/DL (6.4-8.2)
[2018-05-22] MEDS: ONDANSETRON 4MG/2ML VIAL (J2405) IV PRN (08:29)
[2018-05-22] MEDS: MULTIVITAMINS/MINERALS THERAP 1 TAB PO SCH (08:29)
[2018-05-22] MEDS: BENZONATATE 100 MG CAP PO SCH ×3 (08:29→22:07)
[2018-05-22] MEDS: FOLIC ACID 1 MG TAB PO SCH (08:29)
[2018-05-22] MEDS: THIAMINE 100 MG TAB PO SCH (08:29)
[2018-05-22] MEDS: PANTOPRAZOLE 20 MG TAB PO SCH (08:29)
[2018-05-22] MEDS: SENOKOT S TAB PO SCH ×2 (08:29→22:07)
[2018-05-22] MEDS: HumaLOG INSULIN (NovoLOG) PER UNIT SC SCH ×4 (08:30→22:07)
[2018-05-22] MEDS: LEVEMIR (INSULIN DETEMIR) 1 UNITS/0.01ML SC SCH ×2 (08:30→22:06)
[2018-05-22] MEDS: amLODIPine 5 MG TAB PO SCH (08:32)
--- NOTE | 2018-05-22 10:50 | IPNPDOC ---
Subjective Date Seen The patient was seen on 05/22/18. Subjective Chief Complaint/HPI Doing good and wants to go home. Objective Physical Examination General Exam: Positive: Alert, Cooperative, No Acute Distress Eye Exam: Positive: PERRLA, Conjunctiva & lids normal, EOMI ENT Exam: Positive: Atraumatic Neck Exam: Positive: Supple, +2 carotid pulse wo bruit; Negative: JVD, Other Chest Exam: Positive: Clear to auscultation, Normal air movement; Negative: Rales, Rhonchi, Wheezing, Diminished, Other Heart Exam: Positive: Rate Normal, Tachycardic, Regular Rhythm, Normal S1, Normal S2; Negative: Irregular Rhythm, Gallops, Murmurs, Rubs, Other Abdomen Exam: Positive: Normal bowel sounds, Soft; Negative: Tenderness, Hepatospenomegaly, Mass Extremity Exam: Positive: Edema (Rt thigh incision c/d/i, dressing clean and dry, RISA 120 cc/24 hrs serosanguinous), Normal pulses (Rt DP and PT triphasic), Tenderness (Rt thigh improved); Negative: Clubbing, Cyanosis, Swelling, Other Neuro Exam: Positive: Strength at 5/5 X4 ext, Cranial Nerves 3-12 NL Psych Exam: Positive: Mental status NL, Anxiety, Oriented x 3 Assessment /Plan Assessment 1. POD #5, s/p Rt FA and FV vein angioplasty for self inflicted injury of FA and FV Pt doing well and ambulated w/o intolerance. RISA drain trending up, 220cc /24 hrs more serous, likely secondary to increased ambulation yesterday. 2. Acute blood loss anemia, improved Hgb10.1 3. Anxiety and Depression Once medical cleared, will transfer to mental service for S[place] and [place] 4. IDDM type1 Plan/VTE VTE Prophylaxis Ordered?: Yes Plan Continue current management Will DC RISA drain when <100 cc /24 hrs Will transfer to mental service for Sasha and [place] after RISA drain removed VS, I&O, 24H, Fishbone Vital Signs/I&O Vital Signs Date Time Temp Pulse Resp B/P (MAP) Pulse Ox O2 Delivery O2 Flow Rate FiO2 05/22/18 08:32 90 138/92 05/22/18 07:17 18 Room Air 05/22/18 06:00 98.0 98 05/17/18 09:07 10.0 40 I&O- Last 24 Hours up to 6 AM 05/22/18 06:00 Intake Total 2120 ml Output Total 3875 ml Balance -1755 ml Laboratory Data 24H LABS Laboratory Tests 2 05/21/18 11:26: Bedside Glucose (Misc Panel) 331H 05/21/18 16:39: Bedside Glucose (Misc Panel) 170H 05/21/18 20:29: Bedside Glucose (Misc Panel) 371H 05/22/18 02:45: Bedside Glucose (Misc Panel) 223H 05/22/18 06:13: Nucleated Red Blood Cells % (auto) 0.0, Prothrombin Time 13.3, Prothromb Time International Ratio 1.00, Anion Gap 4L, Glomerular Filtration Rate > 60.0, Blood Urea Nitrogen 15, Creatinine 0.81, Sodium Level 138, Potassium Level 4.5, Chloride Level 104, Carbon Dioxide Level 30, Calcium Level 9.2, Aspartate Amino Transf (AST/SGOT) 23, Alanine Aminotransferase (ALT/SGPT) 48, Alkaline Phosphatase 70, Total Bilirubin 0.4, Total Protein 6.2L, Albumin 3.0L, Magnesium Level 1.8, Albumin/Globulin Ratio 0.94L CBC/BMP Laboratory Tests 05/22/18 06:13 Red Blood Count 3.39 L, Mean Corpuscular Volume 87.3, Mean Corpuscular Hemog lobin 29.8, Mean Corpuscular Hemoglobin Concent 34.1, Red Cell Distribution Width 13.4, Calcium Level 9.2, Aspartate Amino Transf (AST/SGOT) 23, Alanine Aminotransferase (ALT/SGPT) 48, Alkaline Phosphatase 70, Total Bilirubin 0.4, Total Protein 6.2 L, Albumin 3.0 L Microbiology Microbiology 05/21/18 Blood Culture - Preliminary, Resulted No growth after 24 hours . All specim... 05/21/18 Blood Culture - Preliminary, Resulted No growth after 24 hours . All specim... 05/17/18 Blood Culture - Preliminary, Resulted No Growth after 72 hours. All specime... 05/17/18 Blood Culture - Preliminary, Resulted No Growth after 72 hours. All specime... 05/17/18 MRSA Screen - Final, Complete FRANSISCO CASTILLO PA-C May 22, 2018 10:50
[2018-05-22 14:00] VITALS: BP 144/92
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
[2018-05-22] MEDS ORDERED: NORCO, ANEXSIA 5/325MG TABLET (HYDROcodone/ACETAMINOPHEN) PO ONE (20:15)
[2018-05-22 22:00] VITALS: BP 138/84
[2018-05-22] MEDS: FLUoxetine 20 MG CAP PO SCH (22:07)
[2018-05-23] MEDS: NORCO, ANEXSIA 5/325MG TABLET (HYDROcodone/ACETAMINOPHEN) PO PRN ×5 (04:19→21:50)
[2018-05-23] MEDS: HEPARIN SOD (PORCINE) 5000 UNITS/ML VIAL SC SCH ×3 (05:26→20:59)
[2018-05-23 06:00] VITALS: BP 142/86
[2018-05-23 06:11] LABS: HEMATOCRIT 29.4 % (42.0-52.0); HEMOGLOBIN 10.2 g/dl (13.5-17.5); MEAN CORPUSCULAR HEMOGLOBIN 29.7 pg (27.0-33.0); MEAN CORPUSCULAR HGB CONC 34.7 g/dl (32.0-36.5); MEAN CORPUSCULAR VOLUME 85.5 fl (80.0-96.0); PLATELET COUNT, AUTOMATED 314 10^3/uL (150-450); RED BLOOD COUNT 3.44 10^6/uL (4.30-6.10); WHITE BLOOD COUNT 9.3 10^3/uL (4.0-10.0)
[2018-05-23 06:39] LABS: INR 0.98; PROTHROMBIN TIME 13.1 SECONDS (12.1-14.4)
[2018-05-23 06:44] LABS: ALBUMIN 2.9 GM/DL (3.2-5.2); ALT/SGPT 44 U/L (12-78); BILIRUBIN,TOTAL 0.3 MG/DL (0.2-1.0); BLOOD UREA NITROGEN 16 MG/DL (7-18); CALCIUM LEVEL 8.9 MG/DL (8.5-10.1); CARBON DIOXIDE LEVEL 29 MEQ/L (21-32); CHLORIDE LEVEL 106 MEQ/L (98-107); GLOMERULAR FILTRATION RATE > 60.0 (>60); GLUCOSE, FASTING 80 MG/DL (70-100); MAGNESIUM LEVEL 1.6 MG/DL (1.8-2.4); POTASSIUM SERUM 3.7 MEQ/L (3.5-5.1); SODIUM LEVEL 142 MEQ/L (136-145); TOTAL PROTEIN 6.5 GM/DL (6.4-8.2)
[2018-05-23] MEDS: HumaLOG INSULIN (NovoLOG) PER UNIT SC SCH ×4 (07:30→21:00)
[2018-05-23] MEDS ORDERED: MAG SULF 1GM/100ML (MAG RUN) 1 GM in APPROPRIATE DILUENT 1 EA IV ONE (09:00)
[2018-05-23] MEDS: LEVEMIR (INSULIN DETEMIR) 1 UNITS/0.01ML SC SCH ×2 (09:00→20:56)
[2018-05-23] MEDS ORDERED: LEVEMIR (INSULIN DETEMIR) 1 UNITS/0.01ML SC SCH (09:00)
[2018-05-23] MEDS: SENOKOT S TAB PO SCH ×2 (09:13→20:57)
[2018-05-23] MEDS: FOLIC ACID 1 MG TAB PO SCH (09:13)
[2018-05-23] MEDS: PANTOPRAZOLE 20 MG TAB PO SCH (09:13)
[2018-05-23] MEDS: THIAMINE 100 MG TAB PO SCH (09:13)
[2018-05-23] MEDS: BENZONATATE 100 MG CAP PO SCH ×3 (09:13→20:57)
[2018-05-23] MEDS: MULTIVITAMINS/MINERALS THERAP 1 TAB PO SCH (09:13)
[2018-05-23] MEDS: amLODIPine 5 MG TAB PO SCH (09:15)
[2018-05-23] MEDS ORDERED: NS 500 ML IV ONE (11:15)
[2018-05-23] MEDS ORDERED: LEVEMIR (INSULIN DETEMIR) 1 UNITS/0.01ML SC ONE (12:00)
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
[2018-05-23 14:00] VITALS: BP 158/81
--- NOTE | 2018-05-23 15:17 | IPNPDOC ---
Subjective Date Seen The patient was seen on 05/23/18. Subjective Chief Complaint/HPI Doing well no c/o. Objective Physical Examination General Exam: Positive: Alert, Cooperative, No Acute Distress Eye Exam: Positive: PERRLA, Conjunctiva & lids normal, EOMI ENT Exam: Positive: Atraumatic Neck Exam: Positive: Supple, +2 carotid pulse wo bruit; Negative: JVD, Other Chest Exam: Positive: Clear to auscultation, Normal air movement; Negative: Rales, Rhonchi, Wheezing, Diminished, Other Heart Exam: Positive: Rate Normal, Tachycardic, Regular Rhythm, Normal S1, Normal S2; Negative: Irregular Rhythm, Gallops, Murmurs, Rubs, Other Abdomen Exam: Positive: Normal bowel sounds, Soft; Negative: Tenderness, Hepatospenomegaly, Mass Extremity Exam: Positive: Normal pulses (DP and PT triphasic b/l), Tenderness (RLE significantly improved, RISA drain with serous drainage 70 cc /24 hrs.); Negative: Clubbing, Cyanosis, Edema, Swelling, Other Neuro Exam: Positive: Strength at 5/5 X4 ext, Cranial Nerves 3-12 NL Psych Exam: Positive: Mental status NL, Mood NL, Oriented x 3 Assessment /Plan Assessment 1. POD #6, s/p Rt FA and FV vein angioplasty Pt doing well and ambulated w/o intolerance. RISA drain <100 cc/24 hrs 2. Type 1 IDDM 3. Anxiety and Depression Await mental service Sasha and Tx Plan/VTE VTE Prophylaxis Ordered?: Yes Plan Continue current management as per hospital medicine. DC RISA drain. Groin dressing change prn. Pt's medically cleared now from standpoint of vascular surgery. VS, I&O, 24H, Fishbone Vital Signs/I&O Vital Signs Date Time Temp Pulse Resp B/P (MAP) Pulse Ox O2 Delivery O2 Flow Rate FiO2 05/23/18 13:24 18 Room Air 05/23/18 09:15 97 138/93 05/23/18 06:00 96.4 99 05/17/18 09:07 10.0 40 I&O- Last 24 Hours up to 6 AM 05/23/18 06:00 Intake Total 1920 ml Output Total 2105 ml Balance -185 ml Laboratory Data 24H LABS Laboratory Tests 2 05/22/18 16:33: Bedside Glucose (Misc Panel) 341H 05/22/18 21:47: Bedside Glucose (Misc Panel) 258H 05/23/18 05:20: Nucleated Red Blood Cells % (auto) 0.0, Prothrombin Time 13.1, Prothromb Time International Ratio 0.98, Anion Gap 7L, Glomerular Filtration Rate > 60.0, Blood Urea Nitrogen 16, Creatinine 0.80, Sodium Level 142, Potassium Level 3.7, Chloride Level 106, Carbon Dioxide Level 29, Calcium Level 8.9, Aspartate Amino Transf (AST/SGOT) 19, Alanine Aminotransferase (ALT/SGPT) 44, Alkaline Phosphatase 71, Total Bilirubin 0.3, Total Protein 6.5, Albumin 2.9L, Magnesium Level 1.6L, Albumin/Globulin Ratio 0.81L 05/23/18 10:19: Bedside Glucose (Misc Panel) 508*H 05/23/18 10:31: Bedside Glucose (Misc Panel) 444H 05/23/18 11:20: Bedside Glucose (Misc Panel) 522*H 05/23/18 11:55: Bedside Glucose (Misc Panel) 325H CBC/BMP Laboratory Tests 05/23/18 05:20 Red Blood Count 3.44 L, Mean Corpuscular Volume 85.5, Mean Corpuscular Hemoglobin 29.7, Mean Corpuscular Hemoglobin Concent 34.7, Red Cell Distribution Width 13.6, Calcium Level 8.9, Aspartate Amino Transf (AST/SGOT) 19, Alanine Aminotransferase (ALT/SGPT) 44, Alkaline Phosphatase 71, Total Bilirubin 0.3, Total Protein 6.5, Albumin 2.9 L Microbiology Microbiology 05/21/18 Blood Culture - Preliminary, Resulted No Growth after 48 hours. All Specime... 05/21/18 Blood Culture - Preliminary, Resulted No Growth after 48 hours. All Specime... 05/17/18 Blood Culture - Final, Complete NO GROWTH AFTER 5 DAYS 05/17/18 Blood Culture - Final, Complete NO GROWTH AFTER 5 DAYS 05/17/18 MRSA Screen - Final, Complete FRANSISCO CASTILLO PA-C May 23, 2018 15:17
[2018-05-23 20:00] VITALS: BP 131/86
[2018-05-23] MEDS: FLUoxetine 20 MG CAP PO SCH (20:57)
[2018-05-24] MEDS: NORCO, ANEXSIA 5/325MG TABLET (HYDROcodone/ACETAMINOPHEN) PO PRN ×4 (01:58→14:59)
[2018-05-24] MEDS: HEPARIN SOD (PORCINE) 5000 UNITS/ML VIAL SC SCH ×2 (05:21→14:59)
[2018-05-24 06:00] VITALS: BP 143/89
[2018-05-24 06:21] LABS: HEMATOCRIT 31.7 % (42.0-52.0); HEMOGLOBIN 10.6 g/dl (13.5-17.5); MEAN CORPUSCULAR HEMOGLOBIN 29.8 pg (27.0-33.0); MEAN CORPUSCULAR HGB CONC 33.4 g/dl (32.0-36.5); PLATELET COUNT, AUTOMATED 413 10^3/uL (150-450); RED BLOOD COUNT 3.56 10^6/uL (4.30-6.10); WHITE BLOOD COUNT 10.5 10^3/uL (4.0-10.0)
[2018-05-24 06:26] LABS: INR 0.98; PROTHROMBIN TIME 13.1 SECONDS (12.1-14.4)
[2018-05-24 06:41] LABS: ALBUMIN 3.2 GM/DL (3.2-5.2); ALT/SGPT 49 U/L (12-78); BILIRUBIN,TOTAL 0.3 MG/DL (0.2-1.0); BLOOD UREA NITROGEN 15 MG/DL (7-18); CALCIUM LEVEL 9.2 MG/DL (8.5-10.1); CARBON DIOXIDE LEVEL 30 MEQ/L (21-32); CHLORIDE LEVEL 105 MEQ/L (98-107); CREATININE FOR GFR 0.82 MG/DL (0.70-1.30); GLOMERULAR FILTRATION RATE > 60.0 (>60); GLUCOSE, FASTING 113 MG/DL (70-100); MAGNESIUM LEVEL 1.9 MG/DL (1.8-2.4); SODIUM LEVEL 140 MEQ/L (136-145); TOTAL PROTEIN 6.8 GM/DL (6.4-8.2)
[2018-05-24] MEDS: HumaLOG INSULIN (NovoLOG) PER UNIT SC SCH ×4 (08:19→16:44)
[2018-05-24] MEDS: LEVEMIR (INSULIN DETEMIR) 1 UNITS/0.01ML SC SCH (08:34)
[2018-05-24 08:35] VITALS: BP 143/89
[2018-05-24] MEDS: PANTOPRAZOLE 20 MG TAB PO SCH (08:35)
[2018-05-24] MEDS: SENOKOT S TAB PO SCH (08:35)
[2018-05-24] MEDS: BENZONATATE 100 MG CAP PO SCH ×2 (08:35→16:46)
[2018-05-24] MEDS: amLODIPine 5 MG TAB PO SCH (08:35)
[2018-05-24] MEDS: MULTIVITAMINS/MINERALS THERAP 1 TAB PO SCH (08:35)
[2018-05-24] MEDS: THIAMINE 100 MG TAB PO SCH (08:35)
[2018-05-24] MEDS: FOLIC ACID 1 MG TAB PO SCH (08:35)
[2018-05-24] MEDS ORDERED: NORCOTAB PO (11:25)
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
[2018-05-24 14:00] VITALS: BP 140/96
--- NOTE | 2018-05-24 15:41 | IPNPDOC ---
Subjective Date Seen The patient was seen on 05/24/18. Subjective Chief Complaint/HPI Doing well no c/o. Objective Physical Examination General Exam: Positive: Alert, Cooperative, No Acute Distress Eye Exam: Positive: PERRLA, Conjunctiva & lids normal, EOMI ENT Exam: Positive: Atraumatic Neck Exam: Positive: Supple, +2 carotid pulse wo bruit; Negative: JVD, Other Chest Exam: Positive: Clear to auscultation, Normal air movement; Negative: Rales, Rhonchi, Wheezing, Diminished, Other Heart Exam: Positive: Rate Normal, Tachycardic, Regular Rhythm, Normal S1, Normal S2; Negative: Irregular Rhythm, Gallops, Murmurs, Rubs, Other Abdomen Exam: Positive: Normal bowel sounds, Soft; Negative: Tenderness, Hepatospenomegaly, Mass Extremity Exam: Positive: Normal pulses (DP and PT triphasic b/l), Tenderness (RLE significantly improved, RISA drain with serous drainage 70 cc /24 hrs.); Negative: Clubbing, Cyanosis, Edema, Swelling, Other Neuro Exam: Positive: Strength at 5/5 X4 ext, Cranial Nerves 3-12 NL Psych Exam: Positive: Mental status NL, Mood NL, Oriented x 3 Assessment /Plan Assessment 1. POD #7, s/p Rt FA and FV vein angioplasty Pt doing well and is medically cleared 2. Type 1 IDDM 3. Anxiety and Depression Plan/VTE VTE Prophylaxis Ordered?: Yes Plan Pt is medical cleared. DC to [facility] for evaluation. Dana 5/325 mg 1 tab q4-6 hrs prn pain x7 days F/u with Dr Whitman in 5-7 days. VS, I&O, 24H, Jenny Vital Signs/I&O Vital Signs Date Time Temp Pulse Resp B/P (MAP) Pulse Ox O2 Delivery O2 Flow Rate FiO2 05/24/18 15:29 16 05/24/18 14:00 99.2 109 140/96 (111) 99 Room Air I&O- Last 24 Hours up to 6 AM 05/24/18 06:00 Intake Total 2640 ml Output Total 3100 ml Balance -460 ml Laboratory Data 24H LABS Laboratory Tests 2 05/23/18 16:30: Bedside Glucose (Misc Panel) 205H 05/23/18 20:23: Bedside Glucose (Misc Panel) 123H 05/24/18 02:06: Bedside Glucose (Misc Panel) 65L 05/24/18 02:47: Bedside Glucose (Misc Panel) 162H 05/24/18 05:19: Nucleated Red Blood Cells % (auto) 0.0, Prothrombin Time 13.1, Prothromb Time International Ratio 0.98, Anion Gap 5L, Glomerular Filtration Rate > 60.0, Blood Urea Nitrogen 15, Creatinine 0.82, Sodium Level 140, Potassium Level 4.0, Chloride Level 105, Carbon Dioxide Level 30, Calcium Level 9.2, Aspartate Amino Transf (AST/SGOT) 23, Alanine Aminotransferase (ALT/SGPT) 49, Alkaline Phosph atase 78, Total Bilirubin 0.3, Total Protein 6.8, Albumin 3.2, Magnesium Level 1.9, Albumin/Globulin Ratio 0.89L 05/24/18 08:06: Bedside Glucose (Misc Panel) 153H 05/24/18 11:11: Bedside Glucose (Misc Panel) 231H CBC/BMP Laboratory Tests 05/24/18 05:19 Red Blood Count 3.56 L, Mean Corpuscular Volume 89.0, Mean Corpuscular Hemoglobin 29.8, Mean Corpuscular Hemoglobin Concent 33.4, Red Cell Distribution Width 14.3, Calcium Level 9.2, Aspartate Amino Transf (AST/SGOT) 23, Alanine Aminotransferase (ALT/SGPT) 49, Alkaline Phosphatase 78, Total Bilirubin 0.3, Total Protein 6.8, Albumin 3.2 Microbiology Microbiology 05/21/18 Blood Culture - Preliminary, Resulted No Growth after 72 hours. All specime... 05/21/18 Blood Culture - Preliminary, Resulted No Growth after 72 hours. All specime... 05/17/18 Blood Culture - Final, Complete NO GROWTH AFTER 5 DAYS 05/17/18 Blood Culture - Final, Complete NO GROWTH AFTER 5 DAYS 05/17/18 MRSA Screen - Final, Complete FRANSISCO CASTILLO PA-C May 24, 2018 15:41
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
[2018-05-24] MEDS ORDERED: LEVEMIR (INSULIN DETEMIR) 1 UNITS/0.01ML SC SCH (21:00)
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
== END 2018-05-24 17:05 | disposition home or self-care (01) | DRG 173 ==
LOC: M ED 19:47 → EDBD 19:47 → M ED INP 23:12 → EEVIPCON 23:12 → M ICU 05-17 00:20 → M MS5PR 05-17 14:55
PROVIDERS: ADMIT Surgery Vascular Surgery; ATTEND Surgery Vascular Surgery
PROC: 06U Lower Veins, Supplement (ICD-10-PCS; 2018-05-16)
PROC: 30233N1 Transfusion of Nonautologous Red Blood Cells into Peripheral Vein, Percutaneous Approach (ICD-10-PCS; 2018-05-16)
PROC: 5A1935Z Respiratory Ventilation, Less than 24 Consecutive Hours (ICD-10-PCS; 2018-05-16)
PROC: 04UK0KZ Supplement Right Femoral Artery with Nonautologous Tissue Substitute, Open Approach (ICD-10-PCS; principal; 2018-05-16 20:48)
DX: S75.021A Major laceration of femoral artery, right leg, initial encounter (principal); J96.90 Respiratory failure, unspecified, unspecified whether with hypoxia or hypercapnia; N17.9 Acute kidney failure, unspecified; E87.2 Acidosis; D62 Acute posthemorrhagic anemia; S75.121A Major laceration of femoral vein at hip and thigh level, right leg, initial encounter; E87.5 Hyperkalemia; T14.91XA Suicide attempt, initial encounter; F10.129 Alcohol abuse with intoxication, unspecified; F19.10 Other psychoactive substance abuse, uncomplicated; E10.9 Type 1 diabetes mellitus without complications; E04.1 Nontoxic single thyroid nodule; F41.8 Other specified anxiety disorders; F32.89 Other specified depressive episodes; F12.20 Cannabis dependence, uncomplicated; F14.20 Cocaine dependence, uncomplicated; F17.200 Nicotine dependence, unspecified, uncomplicated; Z79.4 Long term (current) use of insulin; Z79.899 Other long term (current) drug therapy; Z86.14 Personal history of Methicillin resistant Staphylococcus aureus infection; Y92.000 Kitchen of unspecified non-institutional (private) residence as the place of occurrence of the external cause; X78.1XXA Intentional self-harm by knife, initial encounter; K59.00 Constipation, unspecified; F15.20 Other stimulant dependence, uncomplicated

== ENCOUNTER → 2018-06-29 | Outpatient (CLI) | payer OTHER ==
[~2018-06-29] MED LIST changes: +ATOM40CA2 PO; +FLUO40CA PO; +INSUH10VL; +INSUHUMDS SC; +MAGN400T PO; +MED REC COMMENT; +NORCOTAB PO; +VITA50005 PO
[2018-06-29 13:33] LABS: FREE T4 1.02 NG/DL (0.76-1.46); THYROID STIMULATING HORMONE < 0.005 uIU/ML (0.358-3.740)
== END ==
LOC: M LAB 12:09
PROVIDERS: ATTEND Physician Assistant
DX: R79.89 Other specified abnormal findings of blood chemistry (principal)

== ENCOUNTER → 2018-06-29 | Outpatient (CLI) | payer OTHER ==
--- NOTE | 2018-06-29 14:17 | REP ---
DUPLEX DOPPLER ARTERIAL EVALUATION OF RIGHT COMMON FEMORAL ARTERY: Real-time ultrasound evaluation and duplex Doppler interrogation of right common femoral artery region is performed in this patient who has had repair of right femoral artery and vein. There is patency of the right common femoral artery and vein with no intraluminal thrombus, narrowing, or extravasation. Normal Doppler spectral waveforms are identified. In the anterior soft tissues, there is an oval hypoechoic area which measures 7.5 x 3.2 x 4.4 cm, most likely a hematoma. Electronically Signed by Emmanuel Hinson MD 06/29/2018 04:12 P
== END ==
LOC: M RAD 11:13
PROVIDERS: ATTEND Surgery Vascular Surgery
DX: S75.001A Unspecified injury of femoral artery, right leg, initial encounter (principal); X58.XXXA Exposure to other specified factors, initial encounter; Y92.9 Unspecified place or not applicable

== ENCOUNTER → 2018-08-21 | Outpatient (CLI) | payer OTHER ==
[~2018-08-21] MED LIST changes: +HYDR-3715 PO; -NORCOTAB PO
[2018-08-21 13:23] LABS: HEMATOCRIT 42.6 % (42.0-52.0); HEMOGLOBIN 13.7 g/dl (13.5-17.5); MEAN CORPUSCULAR HEMOGLOBIN 28.5 pg (27.0-33.0); MEAN CORPUSCULAR HGB CONC 32.2 g/dl (32.0-36.5); MEAN CORPUSCULAR VOLUME 88.6 fl (80.0-96.0); PLATELET COUNT, AUTOMATED 256 10^3/uL (150-450); RED BLOOD COUNT 4.81 10^6/uL (4.30-6.10); WHITE BLOOD COUNT 7.3 10^3/uL (4.0-10.0)
[2018-08-21 13:55] LABS: ALT/SGPT 32 U/L (12-78); BILIRUBIN,TOTAL 0.3 MG/DL (0.2-1.0); BLOOD UREA NITROGEN 12 MG/DL (7-18); CALCIUM LEVEL 9.7 MG/DL (8.5-10.1); CARBON DIOXIDE LEVEL 31 MEQ/L (21-32); CHLORIDE LEVEL 103 MEQ/L (98-107); CHOLESTEROL LEVEL 177 MG/DL (<200); CHOLESTEROL RISK RATIO 2.854 (<5); CREATININE FOR GFR 0.82 MG/DL (0.70-1.30); GLOMERULAR FILTRATION RATE > 60.0 (>60); GLUCOSE, FASTING 214 MG/DL (70-100); HDL CHOLESTEROL 62 MG/DL (>40); HEMOGLOBIN A1c 8.8 %; LDL CHOLESTEROL 100 MG/DL (<100); NON-HDL-C 115 MG/DL; POTASSIUM SERUM 4.6 MEQ/L (3.5-5.1); SODIUM LEVEL 139 MEQ/L (136-145); THYROID STIMULATING HORMONE 0.007 uIU/ML (0.358-3.740); TOTAL 25(OH) VITAMIN D 44.7 NG/ML (30.0-100.0); TRIGLYCERIDES LEVEL 74 MG/DL (<150)
== END ==
LOC: M LAB 12:34
PROVIDERS: ATTEND Family Medicine
DX: R53.83 Other fatigue (principal); E03.9 Hypothyroidism, unspecified

== ENCOUNTER → 2018-10-30 | Outpatient (CLI) | payer OTHER ==
[2018-10-30 10:09] LABS: HEMOGLOBIN A1c 9.5 %
[2018-10-30 10:19] LABS: THYROID STIMULATING HORMONE 0.006 uIU/ML (0.358-3.740)
[2018-10-30 10:41] LABS: TOTAL 25(OH) VITAMIN D 54.1 NG/ML (30.0-100.0)
== END ==
LOC: M LAB 08:38
PROVIDERS: ATTEND Family Medicine
DX: E03.9 Hypothyroidism, unspecified (principal)

== ENCOUNTER → 2022-02-11 | Outpatient (CLI) | payer MEDICAID ==
[~2022-02-11] MED LIST changes: -MAGN400T PO; +MAGN400T33 PO
[2022-02-11 12:54] LABS: HEMATOCRIT 44.7 % (42.0-52.0); HEMOGLOBIN 14.9 g/dl (13.5-17.5); MEAN CORPUSCULAR HGB CONC 33.3 g/dl (32.0-36.5); MEAN CORPUSCULAR VOLUME 90.1 fl (80.0-96.0); PLATELET COUNT, AUTOMATED 191 10^3/uL (150-450); RED BLOOD COUNT 4.96 10^6/uL (4.30-6.10); WHITE BLOOD COUNT 6.8 10^3/uL (4.0-10.0)
[2022-02-11 13:26] LABS: ALBUMIN 3.6 GM/DL (3.2-5.2); ALT/SGPT 27 U/L (12-78); BILIRUBIN,TOTAL 0.3 MG/DL (0.2-1.0); BLOOD UREA NITROGEN 12 MG/DL (7-18); CALCIUM LEVEL 9.4 MG/DL (8.5-10.1); CARBON DIOXIDE LEVEL 31 MEQ/L (21-32); CHLORIDE LEVEL 107 MEQ/L (98-107); CHOLESTEROL LEVEL 149 MG/DL (<200); CHOLESTEROL RISK RATIO 3.104 (<5); CREATININE FOR GFR 0.89 MG/DL (0.70-1.30); GLOMERULAR FILTRATION RATE > 60.0 (>60); GLUCOSE, FASTING 252 MG/DL (70-100); HDL CHOLESTEROL 48 MG/DL (>40); LDL CHOLESTEROL 87 MG/DL (<100); NON-HDL-C 101 MG/DL; POTASSIUM SERUM 4.8 MEQ/L (3.5-5.1); SODIUM LEVEL 138 MEQ/L (136-145); THYROID STIMULATING HORMONE 0.647 uIU/ML (0.358-3.740); TOTAL PROTEIN 6.5 GM/DL (6.4-8.2); TRIGLYCERIDES LEVEL 71 MG/DL (<150)
[2022-02-11 13:51] LABS: HEMOGLOBIN A1c 9.1 %
[2022-02-11 13:53] LABS: TOTAL 25(OH) VITAMIN D 24.7 NG/ML (30.0-100.0)
== END ==
LOC: M LAB 12:09
PROVIDERS: ATTEND Family Medicine
DX: R53.83 Other fatigue (principal); I10 Essential (primary) hypertension; E03.9 Hypothyroidism, unspecified

== ENCOUNTER → 2022-07-13 | Outpatient (CLI) | payer MEDICAID, OTHER ==
[2022-07-13 15:27] LABS: CREATININE, URINE 78.7 MG/DL
[2022-07-13 15:28] LABS: BLOOD UREA NITROGEN 15 MG/DL (9-23); CALCIUM LEVEL 9.5 MG/DL (8.5-10.1); CARBON DIOXIDE LEVEL 34 MMOL/L (20-31); CHLORIDE LEVEL 100 MMOL/L (98-107); CHOLESTEROL LEVEL 215 MG/DL (<200); CHOLESTEROL RISK RATIO 3.48 (<5); CREATININE FOR GFR 0.69 MG/DL (0.70-1.30); GLOMERULAR FILTRATION RATE > 60.0 (>60); GLUCOSE, FASTING 230 MG/DL (60-100); HDL CHOLESTEROL 61.7 MG/DL (>40); LDL CHOLESTEROL 131.9 MG/DL (<100); NON-HDL-C 153 MG/DL; POTASSIUM SERUM 4.3 MMOL/L (3.5-5.1); SODIUM LEVEL 138 MMOL/L (136-145); TRIGLYCERIDES LEVEL 107 MG/DL (<150)
[2022-07-13 15:28] LABS: MAU/CREAT RATIO 6.3 MCG/MG (0.0-30.0)
[2022-07-13 15:29] LABS: FREE T4 1.03 NG/DL (0.89-1.76)
[2022-07-13 15:30] LABS: FREE T3 3.5 PG/ML (2.3-4.2); THYROID STIMULATING HORMONE 1.539 uIU/ML (0.55-4.78)
== END ==
LOC: M LAB 13:28
PROVIDERS: ATTEND Internal Medicine
DX: E05.90 Thyrotoxicosis, unspecified without thyrotoxic crisis or storm (principal); E10.65 Type 1 diabetes mellitus with hyperglycemia

== ENCOUNTER → 2022-07-21 | Outpatient (REF) | payer OTHER ==
[2022-07-21 12:12] LABS: HEMOGLOBIN A1c 10.2 % (4.0-6.0)
== END ==
LOC: M LAB 11:24
PROVIDERS: ATTEND Internal Medicine
DX: E10.65 Type 1 diabetes mellitus with hyperglycemia (principal); E05.90 Thyrotoxicosis, unspecified without thyrotoxic crisis or storm

== ENCOUNTER → 2022-09-07 | Outpatient (CLI) | payer OTHER ==
[2022-09-07 18:02] LABS: URIC ACID 2.9 MG/DL (3.7-9.2)
[2022-09-07 18:05] LABS: ALBUMIN 3.2 G/DL (3.2-5.2); ALKALINE PHOSPHATASE 72 U/L (46-116); ALT/SGPT 86 U/L (7.0-40); AST/SGOT 45 U/L (<34); BASO % 0.5 % (0.0-1.0); BILIRUBIN,TOTAL 0.3 MG/DL (0.3-1.2); BLOOD UREA NITROGEN 14 MG/DL (9-23); CALCIUM LEVEL 9.1 MG/DL (8.5-10.1); CARBON DIOXIDE LEVEL 33 MMOL/L (20-31); CHLORIDE LEVEL 102 MMOL/L (98-107); CREATININE FOR GFR 0.73 MG/DL (0.70-1.30); EOS # 0.4 10^3/uL (0.0-0.5); EOS % 4.6 % (0.0-3.0); GLOMERULAR FILTRATION RATE > 60.0 (>60); GLUCOSE, FASTING 377 MG/DL (60-100); HEMATOCRIT 45.8 % (42.0-52.0); HEMOGLOBIN 14.8 g/dl (13.5-17.5); LYMPH # 2.1 10^3/uL (1.5-5.0); LYMPH % 26.8 % (24.0-44.0); MEAN CORPUSCULAR HEMOGLOBIN 29.7 pg (27.0-33.0); MEAN CORPUSCULAR HGB CONC 32.3 g/dl (32.0-36.5); MONO # 0.6 10^3/uL (0.0-0.8); MONO % 7.5 % (2.0-8.0); NEUTROPHILS # 4.7 10^3/uL (1.5-8.5); NEUTROPHILS % 60.3 % (36.0-66.0); PLATELET COUNT, AUTOMATED 318 10^3/uL (150-450); POTASSIUM SERUM 5.1 MMOL/L (3.5-5.1); RED BLOOD COUNT 4.98 10^6/uL (4.30-6.10); SODIUM LEVEL 136 MMOL/L (136-145); TOTAL PROTEIN 6.3 G/DL (5.7-8.2); WHITE BLOOD COUNT 7.8 10^3/uL (4.0-10.0)
[2022-09-07 18:07] LABS: RHEUMATOID FACTOR QUANT 5.1 IU/ML (<14)
== END ==
LOC: M PLALAB 14:46
PROVIDERS: ATTEND Nurse Practitioner Family
DX: M25.50 Pain in unspecified joint (principal); Z86.19 Personal history of other infectious and parasitic diseases

== ENCOUNTER → 2022-12-15 | Outpatient (CLI) | payer OTHER | LOC: M PLALAB 15:27 → M PLAIMG 15:27 | PROVIDERS: ATTEND Physician Assistant Medical | DX: M25.512 Pain in left shoulder (principal); M65.331 Trigger finger, right middle finger; M65.332 Trigger finger, left middle finger; M47.812 Spondylosis without myelopathy or radiculopathy, cervical region; M25.511 Pain in right shoulder ==

== ENCOUNTER 2024-06-26 12:45 | Outpatient (RCR) | payer OTHER | END 2024-07-12 | LOC: M PT 12:45 | PROVIDERS: ATTEND Student in an Organized Health Care Education/Training Program | DX: M54.2 Cervicalgia (principal); M54.32 Sciatica, left side ==